=== PATIENT | female | born 1970 | race Caucasian/White ===

== ENCOUNTER 2022-02-12 15:49 | Emergency (ER) | payer OTHER, SELFPAY ==
--- NOTE | ~2022-02-12 | XR_ITS ---
XR elbow RT min 3V DATE: 02/12/2022 16:38 INDICATION: Pain after pushing heavy objects. TECHNIQUE: 4 views COMPARISON: None FINDINGS: No fracture or dislocation or joint effusion. No periosteal reaction or bone destruction. IMPRESSION: Negative Reviewed, dictated and finalized at location B. EY MECHANIC IMPRESSION: Negative
[2022-02-12 16:03] VITALS: BP 125/64; PULSE 70; RESP 16; TEMP 36.3; O2SAT 98
--- NOTE | 2022-02-12 18:16 | ED.GENADULT ---
HPI - General Adult General Chief complaint: Extremity Problem,Nontraumatic Stated complaint: R. arm pain Time Seen by Provider: 02/12/22 18:12 Source: RN notes reviewed History of Present Illness HPI narrative: Patient presents emergency room from home for right elbow pain. Patient states symptoms began approximately 5 days ago. 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 states that that evening she began to have pain in her right lateral elbow she denies any direct trauma or injury the pain is worse with extension of the wrist and opening of her hand as well as supination and pronation of her wrist she denies any numbness or tingling in the extremity states she took Tylenol earlier today for the Related Data Allergies Allergy/AdvReac Type Severity Reaction Status Date / Time No Known Allergies Allergy Unknown Unverified 10/09/16 16:32 Review of Systems Review of Systems: Gen.: Denies fevers or chills Musculoskeletal: See HPI Neuro: Denies numbness, tingling, weakness Skin: Denies rash Endo: Denies DM PMFSH Past Medical History Medical History (Updated 02/12/22 @ 18:22 by Tom Rios DO) Patient denies significant medical history Social History Social History (Updated 02/12/22 @ 18:17 by Tom Rios DO) Smoking status: Never smoker Exam Narrative: APPEARANCE: No acute distress, nontoxic, resting in bed Eyes: EOMI HEENT: Normocephalic, atraumatic, RESPIRATORY: No respiratory distress MUSCULOSKELETAl: Tender palpation over the right brachial radialis there is no tenderness of the olecranon process there is no tenderness with medial lateral elbow no tenderness of the wrist radial pulse 2+ neurovascular intact full flexion-extension of the elbow without pain pain with supination and pronation of the wrist as well as extension at the wrist neurovascular intact NEURO: Awake and alert. Following commands, speech normal, no focal deficits SKIN:: Warm, dry. Normal Color no rash or lesions Course Course Emergency Course: Discussed with patient results of workup and diagnosis. Discussed need for follow-up with primary care, proper use of medication, and reasons to return to the emergency department. Patient understands and agrees to current treatment plan Vital Signs Vital signs: Vital Signs Temperature 97.4 F L 02/12/22 16:03 Pulse Rate 70 02/12/22 16:03 Respiratory Rate 16 02/12/22 16:03 Blood Pressure 125/64 02/12/22 16:03 Pulse Oximetry 98 02/12/22 16:03 Oxygen Delivery Room Air 02/12/22 16:03 Temperature 97.4 F L 02/12/22 16:03 Pulse Rate 70 02/12/22 16:03 Respiratory Rate 16 02/12/22 16:03 Blood Pressure 125/64 02/12/22 16:03 Pulse Oximetry 98 02/12/22 16:03 Oxygen Delivery Room Air 02/12/22 16:03 Medical Decision Making MDM Narrative Medical decision making narrative: Patient?s injury is consistent with muscular skeletal etiology. No signs of neurologic or vascular compromise to exam. Compartments are soft without signs of compartment syndrome. Pain is consistent with exam and injury. Suspect right brachial radialis strain Vital Signs Vital Signs: Vital Signs Temperature 97.4 F L 02/12/22 16:03 Pulse Rate 70 02/12/22 16:03 Respiratory Rate 16 02/12/22 16:03 Blood Pressure 125/64 02/12/22 16:03 Pulse Oximetry 98 02/12/22 16:03 Oxygen Delivery Room Air 02/12/22 16:03 Temperature 97.4 F L 02/12/22 16:03 Pulse Rate 70 02/12/22 16:03 Respiratory Rate 16 02/12/22 16:03 Blood Pressure 125/64 02/12/22 16:03 Pulse Oximetry 98 02/12/22 16:03 Oxygen Delivery Room Air 02/12/22 16:03 Imaging Data Radiologist's impression: ITS Impressions Elbow X-Ray 02/12/22 16:42 IMPRESSION: Negative Discharge Plan Discharge Clinical Impression: Strain of elbow, right Patient Disposition: Home, Self-Care Condition: Stable Instructio
[2022-02-12] MEDS: IBUPROFEN 600 MG TABLET PO (18:32)
== END 2022-02-12 18:53 | disposition home or self-care (01) ==
PROVIDERS: Emergency Provider Emergency Medicine; PCP Internal Medicine Infectious Disease
DX: S56.911A Strain of unspecified muscles, fascia and tendons at forearm level, right arm, initial encounter (principal); X50.9XXA Other and unspecified overexertion or strenuous movements or postures, initial encounter
CPT/HCPCS: 73080; 99283; A9270

== ENCOUNTER 2022-06-30 06:14 | Emergency (ER) | payer OTHER, SELFPAY ==
--- NOTE | ~2022-06-30 | XR_ITS ---
EXAMINATION: XR chest 2V DATE: 06/30/2022 06:50 INDICATION: Chest pain TECHNIQUE: PA and lateral views of the chest were obtained. COMPARISON: None FINDINGS: The lungs are clear with no focal airspace opacities, pulmonary edema, pleural effusion or pneumothor ax. The cardiomediastinal silhouette is normal. Mild lower thoracic levocurvature with mild to modera te thoracic spondylosis. IMPRESSION: 1. No acute cardiopulmonary disease. Reviewed, dictated and finalized at location A.
[2022-06-30 06:18] VITALS: BP 128/63; PULSE 82; RESP 18; O2SAT 97
--- NOTE | 2022-06-30 06:20 | ECG_ITS ---
Measurements Intervals [place] Rate: 73 P: 39 CO: 166 QRS: -26 QRSD: 94 T: 40 QT: 412 QTc: 456 Interpretive Statements SINUS RHYTHM LOW QRS VOLTAGE IN PRECORDIAL LEADS [QRS DEFLECTION < 1.0 mV IN CHEST LEADS] MODERATE VOLTAGE CRITERIA FOR LVH, CONSIDER NORMAL VARIANT [MEETS CRITERIA IN ONE OF: R(aVL), S(V1), R(V5), R(V5/V6)+S(V1)] NO PREVIOUS ECG AVAILABLE FOR COMPARISON Electronically Signed On 06-30-2022 16:04:00 CDT by Thuan Sadler M.D.
[2022-06-30 06:44] LABS: Basophils Percent Auto 0.4 % (0.2-1.2); Eosinophils Absolute Auto 0.3 K/mm3 (0-0.3); Eosinophils Percent Auto 3.2 % (0-4.4); Hematocrit 36.7 % (37.0-47.0); Hemoglobin 11.6 g/dL (12.0-15.0); Immature Granulocyte Absolute 0.03 K/mm3 (0.00-0.031); Immature Granulocyte Percent A 0.4 % (0-0.5); Lymphocytes Absolute Auto 2.28 K/mm3 (0.9-3.2); Mean Corpuscular HGB Conc 31.6 g/dl (32-36); Mean Corpuscular Hemoglobin 28.9 pg (26-34); Mean Corpuscular Volume 91.5 fl (80-100); Mean Platelet Volume 9.5 fl (7.4-10.4); Monocytes Absolute Auto 0.6 K/mm3 (0.1-0.6); Monocytes Percent Auto 6.7 % (2.6-8.5); Neutrophils Percent Auto 61.3 % (45.5-73.1); Platelet Count Result 357 k/mm3 (150-375); Red Blood Count 4.01 M/mm3 (4.2-5.4); Red Cell Distribution Width 13.2 % (11.5-14.5); White Blood Count 8.2 K/mm3 (4.5-10.0)
[2022-06-30 06:56] LABS: Alanine Aminotransferase 20 U/L (6-35); Albumin Level 4.1 g/dL (3.5-5.1); Alkaline Phosphatase 111 U/L (38-126); Anion Gap 5 mmol/L (8-16); Aspartate Amino Transferase 20 U/L (14-36); Bilirubin,Total 0.5 mg/dL (0.2-1.3); Blood Urea Nitrogen 22 mg/dL (7-17); Calcium 8.7 mg/dL (8.4-10.2); Carbon Dioxide 31 mmol/L (22-30); Chloride 102 mmol/L (98-107); Estimated CRCL calculation 143 ml/min; Estimated Glomerular Filt Rate > 60; Glucose 166 mg/dL (65-110); Lipase 76 U/L (23-300); Potassium 3.8 mmol/L (3.4-5.0); Sodium 138 mmol/L (137-145)
[2022-06-30 07:07] LABS: INR 1.1
[2022-06-30 07:08] LABS: Partial Thromboplastin Time 31.5 SECONDS (22.3-36.8)
[2022-06-30 07:11] LABS: Troponin I < 0.012 ng/mL (0.000-0.034)
--- NOTE | 2022-06-30 08:56 | ED.CHESTPAIN ---
HPI - Chest Pain General Chief Complaint: Chest Pain Stated Complaint: left arm pain/chest pain Time Seen by Provider: 06/30/22 08:55 Source: patient Mode of arrival: ambulatory Limitations: no limitations History of Present Illness HPI narrative: Patient is a 52 y/o female who presents to the ED with c/o left upper extremity and chest pain. Patient reports she woke up for work around 3:30 AM this morning and noticed discomfort in her left upper extremity from her shoulder down to her fingers. She also reported having pain into her left axillary region, left upper chest. She states the pain was constant for the first couple hours, but has been intermittent since then. Pain is aggravated with movement of left upper extremity, no aggravation with exertion. Patient not tried anything for pain. Denies any pain currently upon my evaluation. She does report she has had episodes of pain like this in the past. She has previously received a normal cardiac stress testing in the past, several years ago. She does not currently follow with a blower feeder dyed raw stock. Patient did feel slightly nauseous with the pain, but denied any vomiting, abdominal pain, difficulty breathing, recent cough or cold symptoms, fevers, lower extremity pain or swelling, Hx of CAD. Patient reports a history of hypertension, prediabetes, hypercholesterolemia, but is not currently taking her statin medication. Denies family history of cardiac disease or smoking history. Denies Hx of blood clots. Related Data Allergies Allergy/AdvReac Type Severity Reaction Status Date / Time No Known Allergies Allergy Unknown Unverified 10/09/16 16:32 Review of Systems Review of Systems: CONSTITUTIONAL: Denies fever, chills, or sweats. ENT: Denies rhinorrhea, congestion, sore throat. CARDIOVASCULAR: See HPI. RESPIRATORY: Denies cough or dyspnea. GASTROINTESTINAL: See HPI. GENITOURINARY: Denies dysuria or hematuria. SKIN: Denies rash or itching. MUSCULOSKELETAL: See HPI. NEUROLOGIC: Denies headache, numbness, or weakness. All systems reviewed & are unremarkable except as noted in HPI and below PMFSH Past Medical History Medical History HLD (hyperlipidemia) HTN (hypertension) Prediabetes Surgical History Surgical History No pertinent past surgical history Social History Social History Smoking status: Never smoker Exam Narrative: GENERAL: Well appearing, morbidly obese, non-toxic, in no acute distress. HEAD: Normocephalic, atraumatic. NECK: Supple. No adenopathy, no masses. RESPIRATORY: Airway patent, respirations nonlabored. Clear to auscultation bilaterally, no rales, rhonchi, wheezing. CARDIOVASCULAR: Regular rate and rhythm without murmurs, rubs, or gallops. Radial pulses 2+ and equal bilaterally. ABDOMINAL: Soft, nontender, nondistended, no hepatosplenomegaly. Normoactive BS. MUSCULOSKELETAL: Moves all extremities. Strength/ROM intact without gross deformities. No edema. No calf tenderness. No significant chest wall tenderness palpation. Mild discomfort with flexion and abduction of left upper extremity. SKIN: Warm, dry, normal color. No rashes. NEURO: A&O X3. Speech clear. Cranial nerves II-XII grossly intact. Steady gait. No ataxic movements. PSYCHIATRIC: Appropriate mood and affect. Normal interaction. Course Vital Signs Vital signs: Vital Signs Pulse Rate 82 06/30/22 06:18 Respiratory Rate 18 06/30/22 06:18 Blood Pressure 128/63 06/30/22 06:18 Pulse Oximetry 97 06/30/22 06:18 Oxygen Delivery Room Air 06/30/22 06:18 Pulse Rate 60 06/30/22 10:43 Respiratory Rate 16 06/30/22 10:43 Blood Pressure 126/67 06/30/22 10:43 Pulse Oximetry 97 06/30/22 10:43 Oxygen Delivery Room Air 06/30/22 09:51 MDM - Chest Pain MDM Narrative Medical decision [email or web address]
[2022-06-30 09:45] LABS: Troponin I < 0.012 ng/mL (0.000-0.034)
[2022-06-30 10:43] VITALS: BP 126/67; PULSE 60; RESP 16; O2SAT 97
== END 2022-06-30 10:44 | disposition home or self-care (01) ==
PROVIDERS: Emergency Medicine; Emergency Provider Physician Assistant; PCP Internal Medicine Infectious Disease
DX: R07.89 Other chest pain (principal); M79.602 Pain in left arm; I10 Essential (primary) hypertension; E78.00 Pure hypercholesterolemia, unspecified; R73.03 Prediabetes
CPT/HCPCS: 36415; 71046; 80053; 83690; 84484; 85025; 85610; 85730; 93005; 99284

== ENCOUNTER 2024-11-21 15:43 | Emergency (ER) | payer OTHER, SELFPAY ==
--- OUTSIDE RECORDS SUMMARY | 2024-11-21 15:46 | XMS_ITS | Encounter Summary ---
Author Organization [facility] Healthcare Address [address] [place] [address] Care Team Providers Care Riverboat Master Name Role Phone Fadi Wakefield MD Primary Care Provider [phone] Christina Hernandez MD Unavailable Annia Garza MD Unavailable [phone] Jay Jones OD Unavailable [phone] Marlo Zamudio MD Unavailable [phone] CuffRichy OD Unavailable [phone] Encounter Details Date Type Department Care Team (Late st Contact Info) Description 10/21/2024 Results Follow-Up [facility] Medical Group [facility] [address] [place] [address] [phone] Fadi Wakefield MD [address] [facility] [address] [place] [address] Protime-INR, Basic metabolic panel, Hemoglobin A1c, eGFR Social History Tobacco Use Types Packs/Day Years Used Date Smoking Tobacco: Never Smokeless Tobacco: Never Alcohol Use Standard Drinks/Week Comments No 0 (1 standard drink = 0.6 oz pur e alcohol) very rare [facility] Utilities Answer Date Recorded In the past 12 months has [employer] electric, gas, oil, or water company threatened to shut off services in your home? No 07/13/2023 Social Connection and Isolation Panel Answer Date Recorded In a typical week, how many times do you talk on the phone with family, friends, or neighbors? More than three times a week 07/13/2023 How often do you get togethe r with friends or relatives? Three times a week 07/13/2023 How often do you attend chur ch or shinto services? Never 07/13/2023 Do you belong to any clubs o r organizations such as jainism groups, unions, fraternal or athletic groups, or school groups? No 07/13/2023 How often do you attend meet ings of the clubs or organizations you belong to? Never 07/13/2023 Are you , , di vorced, , never , or living with a partner? 07/13/2023 AUDIT-C Answer Date Recorded Q1: How often do you have a drink containing alc ohol? Monthly or less 10/07/2023 Q2: How many drinks containi ng alcohol do you have on a typical day when you are drinking? 1 or 2 10/07/2023 Q3: How often do you have si x or more drinks on one occasion? Never 10/07/2023 Overall Financial Resource Strain (CARDIA) Answe r Date Recorded How hard is it for you to pa y for the very basics like food, housing, medical care, and heating? Not hard at all 07/13/2023 PHQ-2 Answer Date Recorded PHQ-2 Total Score (If total score is 3 or more points, staff should administer the PHQ-9) 0 10/22/2023 [facility] - Occupational Stress Questionnaire Answer Date Recorded Do you feel stress - tense, restless, nervous, or anxious, or unable to sleep at night because your mind is troubled all the time - these days? Only a little 07/13/2023 Hunger Vital Sign Answer Date Recorded Within the past 12 months, y ou worried that your food would run out before you got the money to buy more. Never true 07/13/19 24 Within the past 12 months, t he food you bought just didn't last and you didn't have money to get more. Never true 07/13/2023 PRAPARE - Transportation Answer Date Re corded In the past 12 months, has l ack of transportation kept you from medical appointments or from getting medications? No 06/27 In the past 12 months, has l ack of transportation kept you from meetings, work, or from getting things needed for daily living? No 07/15/2023 Housing Stability Vital Sign Answer Christopher e Recorded In the last 12 months, was t here a time when you were not able to pay the mortgage or rent on time? No 07/13/2023 In the last 12 months, how many places have you lived? 1 07/13/2023 In the last 12 months, was t here a time when you did not have a steady place to sleep or slept in a [place] [facility] [place] (including now)? No 07/13/2023 PHQ-9 Answer Date Recorded Patient Health Questionnaire-9 Score 1 07/15/2023 Personal Safety Answer Date Recorded Have you ever been in or are you currently in a harmful physical or emotional relationship or is someone making you feel afraid or unsafe? Denies 03/19/2024 Education Answer Date Recorded What is the highest level of school you have completed or the highest degree you have received? 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 Not on file Not on file documented as of this encounter Plan of Treatment Not on file documented as of this encounter Visit Diagnoses Not on filedocumented in this encounter Care Teams Riverboat Master Relationship Specialty Start Date End Date Fadi Wakefield MD [address] [place] [address] PCP - General Infectious Diseases 03/06/19 Christina Hernandez MD [address] [place] [address] Consulting Physician Neurology 10/06/19 Annia Garza MD [address] [address] Aviation Ordnance Officer Obstetrics and Gynecology 09/27/19 Jay Jones OD [address] [place] [address] Consulting Physician Optometry 06/06/22 Marlo Zamudio MD [address] [place] [address] Consulting Physician Orthopedic Surgery 02/03/24 Richy Zarate, OD [address] [place] [address] Consulting Physician Optometry 05/12/24 documented as of this encounter
--- OUTSIDE RECORDS SUMMARY | 2024-11-21 15:46 | XMS_ITS | Encounter Summary ---
Author Organization [facility] Healthcare Address [address] [place] [address] Care Team Providers Care Keno Writer / Runner Name Role Phone Fadi Wakefield MD Primary Care Provider [phone] Christina Hernandez MD Unavailable Annia Garza MD Unavailable [phone] Jay Jones OD Unavailable [phone] Marlo Zamudio MD Unavailable [phone] Richy Zarate OD Unavailable [phone] Encounter Details Date Type Department Care Team (Late st Contact Info) Description 10/25/2024 Results Follow-Up [facility] Medical [facility] [address] [place] [address] [phone] Fannie Rosa, [employer] HEATER TENDER Protime-INR Social History Tobacco Use Types Packs/Day Years Used Date Smoking Tobacco: Never Smokeless Tobacco: Never Alcohol Use Standard Drinks/Week Comments No 0 (1 standard drink = 0.6 oz pur e alcohol) very rare [facility] Utilities Answer Date Recorded In the past 12 months has e electric, gas, oil, or water company threatened [...] often do you attend chur ch or taoist services? Never 07/13/2023 Do you belong to any clubs o r organizations such as yazidi groups, unions, fraternal or athletic groups, or [...] staff should administer the PHQ-9) 0 10/22/2023 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 on file Not on file documented as of this encounter Plan of Treatment Not on file documented as of this encounter Visit Diagnoses Not on filedocumented in this encounter Care Teams Keno Writer / Runner Relationship Specialty Start Date End Date Fadi Wakefield MD [address] [place] [address] PCP - General Infectious Diseases 03/06/19 Christina Hernandez MD [address] [place] [address] Consulting Physician Neurology 10/06/19 Annia Garza MD [address] [place] [address] Clinical Tech Obstetrics and Gynecology 09/27/19 Jay Jones OD [address] [place] [address] Consulting Physician Optometry 06/06/22 Marlo Zamudio MD [address] [place] [address] Consulting Physician Orthopedic Surgery 02/03/24 Richy Zarate OD [address] [place] [address] Consulting Physician Optometry 05/12/24 documented as of this encounter
--- OUTSIDE RECORDS SUMMARY | 2024-11-21 15:46 | XMS_ITS | Clinical Summary ---
Author Organization [facility] Address [address] [place] [address] Care Team Providers Care Inspector Publications Name Role Phone Marques Puri MD Primary Care Provider [phone] Christina Hernandez MD Unavailable Annia Garza MD Unavailable [phone] Jay Jones OD Unavailable Marlo Zamudio MD Unavailable [phone] Richy Zarate OD Unavailable [phone] Allergies No known active allergies Medications blood-glucose meter misc Use monitor to test glucose 1-2x daily E 11.9 1 each Active lancets misc Use to test glucose 1-2x daily 100 each 11 020 Active cholecalciferol (VITAMIN D-3) 25 mcg (1,000 unit) tablet Take 1 tablet (1,000 Units total) by mouth daily Active cyanocobalamin (Vitamin B-12) 1,000 mcg tablet Take 1 tablet (1,000 mcg total) by mouth daily Active aspirin 81 mg enteric coated tabletIndication s:prevention of thrombosis Take 1 tablet (81 mg total) by mouth daily Active atorvastatin (LIPITOR) 40 mg tabletIndication s:Hyperlipidemia associated with type 2 diabetes mellitus (HCC) Take 1 tablet (40 mg total) by mouth nightly 90 tablet 3 024 Active acetaminophen (TYLENOL) 500 mg tabletIndication s:Acute febrile illness Take 1-2 tablets (500-1,000 mg total) by mouth every 6 (six) hours as needed for pain or fever Collaborating physician Marlo Gamboa MD 30 tablet 024 Active meclizine (ANTIVERT) 25 mg tabletIndication s:Vertigo Take 1 tablet (25 mg total) by mouth 3 (three) times a day as needed for dizziness 30 tablet 024 Active inhalational spacing device (Aerochamber MV) spacerIndication s:COVID Use with albuterol inhaler 1 each 025 Active albuterol HFA (PROVENTIL HFA,VENTOLIN HFA,PROAIR HFA) 90 mcg/actuation inhalerIndicatio ns:COVID Inhale 2 puffs every 4 (four) hours as needed for shortness of breath or wheezing (cough) 18 g 025 Active warfarin (COUMADIN) 1 mg tabletIndication s:Lupus anticoagulant disorder TAKE 1 TABLET (1 MG TOTAL) BY MOUTH DIRECTED TAKE DIRECTED BASED ON YOUR PROTIME RESULTS 90 tablet 1 025 Active warfarin (COUMADIN) 4 mg tabletIndication s:Other (complete free text reason below),lupus antibody TAKE 1 TABLET (4 MG TOTAL) BY MOUTH DIRECTED TAKE DIRECTED BASED ON YOUR PROTIME RESULTS 90 tablet 1 025 Active lisinopriL (PRINIVIL,ZESTRI L) 20 mg tabletIndication s:Hyperlipidemia associated with type 2 diabetes mellitus (HCC) TAKE 1 TABLET BY MOUTH EVERY DAY 90 tablet 025 Active tirzepatide (Mounjaro) 5 mg/0.5 mL pen injector injectionIndicat ions:type 2 diabetes mellitus INJECT 0.5 ML (5 MG TOTAL) UNDER THE SKIN EVERY 7 DAYS 2 mL 3 025 Active diclofenac sodium (VOLTAREN) 1 % gelIndications:L eft leg pain Apply 2 g topically 4 (four) times a day as needed (pain) 025 Active tirzepatide (Mounjaro) 5 mg/0.5 mL pen injector injectionIndicat ions:type 2 diabetes mellitus INJECT 0.5 ML (5 MG TOTAL) UNDER THE SKIN EVERY 7 DAYS 2 mL 3 025 2024 Discontinued lisinopriL (PRINIVIL,ZESTRI L) 20 mg tabletIndication s:Hyperlipidemia associated with type 2 diabetes mellitus (HCC) TAKE 1 TABLET BY MOUTH EVERY DAY 90 tablet 025 2024 Discontinued tiZANidine (ZANAFLEX) 4 mg tabletIndication s:Left leg pain Take 1 tablet (4 mg total) by mouth every 8 (eight) hours as needed (Take as directed to relax muscles) 20 tablet 025 2024 Discontinued(T herapy completed) diclofenac sodium (VOLTAREN) 1 % gelIndications:L eft leg pain Apply 2 g topically 4 (four) times a day 100 g 025 2024 Discontinued doxycycline (VIBRAMYCIN) 100 mg capsule Take 1 tablet/capsule (100 mg total) by mouth 2 (two) times a day for 10 days 20 tablet/cap gurdeep 025 2024 Active Problems Problem Noted Date Diagnosed Date Verruca vulgaris 08/27/2024 Overview (11/17/2024): Left thumb near base of nail, ulnar aspect. Acute pain of right shoulder 08/27/2024 Headache syndrome 08/01/2024 COVID 05/23/2024 Acute midline low back pain with left-sided scia stephen 03/19/2024 Pneumonia due to infectious organism 01/13/2024 Assessment & Plan (01/31/2024 2:29 PM 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): Acute problem diagnosed in the ER about three weeks ago. She has recovered completely. We ordered a follow-up chest x-ray to make sure the infiltrate is cleared. 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 Assessment & Plan (01/31/2024 2:25 PM 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): New problem diagnosed several months ago, surgery is planned to alleviate symptoms, see discussion elsewhere. Carpal tunnel syndrome of left wrist 10/22/2023 Overview (01/30/2024): Severe on NCS/EMG, also entrapment of ulnar nerve. >>OVERVIEW FOR NUMBNESS OF LEFT HAND WRITTEN ON 10/22/2023 1:50 PM BY MARQUES PURI MD Median nerve distribution, left hand, started mid-August 2023. Assessment & Plan (05/12/2024 4:04 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): Acute problem as of about 6-7 months ago, status post carpal tunnel and cubital tunnel release with some improvement. Keep follow-up with surgery and physical therapy. Assessment & Plan (01/31/2024 2:26 PM 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): New problem diagnosed several months ago, she has severe left carpal tunnel syndrome, also entrapment of the ulnar nerve at the elbow. Surgery is planned but not scheduled yet. There is no medical contraindication to having this surgery. She will have to discontinue aspirin and warfarin prior to the surgery according to the surgeon's practice and recommendation. She takes these medications to reduce the risk of thromboembolic complications from lupus anticoagulant syndrome and history of stroke. She will need to resume them as soon as safe to do so after her surgery. Assessment & Plan (01/30/2024 5:42 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): >>ASSESSMENT AND PLAN FOR NUMBNESS OF LEFT HAND WRITTEN ON 10/22/2023 2:08 PM BY MARQUES PURI MD New symptom, uncontrolled. She noticed numbness in a median nerve distribution of the left hand starting around mid August. There is no significant neck pain. She does do repetitive work at the [employer]. Exam shows no weakness or atrophy. Tinel and Phalen signs are negative. We ordered EMG and nerve conduction study. She may need to be off of her anticoagulants for few days for the EMG depending on their recommendations. Lupus anticoagulant disorder 09/14/2023 Assessment & Plan (11/16/2024 6:56 PM CDT): See [facility] HPI/AP. Assessment & Plan (05/12/2024 4:05 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): Chronic, diagnosed 8 months ago and expected to last more than a year, associated with stroke syndrome,. Managed with warfarin anticoagulation. Assessment & Plan (01/31/2024 2:28 PM 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): New diagnosis as of several months ago when she presented with a stroke. She is on warfarin and aspirin. These medications will need to be held for the carpal tunnel surgery. We will look into bridging therapy with enoxaparin, but it is probably not needed. Assessment & Plan (10/22/2023 2:11 PM CDT): Chronic but newly diagnosed, and associated with acute stroke. She is on warfarin and aspirin. She denies any bleeding complications in the urine or stool, but says she does bruise easily although this is not a new symptom. We will monitor clinically. History of ischemic stroke 07/08/2023 Overview (10/22/2023): Left cheung radiata with right-sided weakness. >>OVERVIEW FOR ACUTE CVA (CEREBROVASCULAR ACCIDENT) (HCC) WRITTEN ON 07/23/2023 6:09 AM BY MARQUES PURI MD MRI without contrast: Acute cerebrovascular infarction in the left cheung radiata adjacent to the left lateral ventricle. >>OVERVIEW FOR RIGHT SIDED WEAKNESS WRITTEN ON 10/22/2023 4:38 AM BY MARQUES PURI MD Due to cheung radiata stroke, see hospital records. Assessment & Plan (10/22/2023 2:06 PM CDT): Acute as of about three months ago, symptoms essentially resolved with no significant residual. Her symptoms were right-sided. She does complain of left finger numbness which sounds more like a carpal tunnel syndrome problem, see discussion elsewhere. She continues on aspirin and warfarin for the stroke and positive lupus anticoagulant. Return here in six months. Assessment & Plan (07/25/2023 6:42 AM CDT): She was admitted to [facility] on 07/08/2023 and discharged on 07/12/2023. She then went to acute rehab at [facility] until 07/16/2023. Since being home, she has done well. She has mild vague headaches. The transient weakness in her right arm has essentially resolved. There is still a mild speech difficulty, but nothing noticeable on exam today. Neurological exam is normal. She will continue full-dose aspirin daily. She was supposed to stop her lisinopril after hospital discharge, but resumed taking it at home. Her blood pressure today is borderline elevated so she can continue lisinopril 20 mg daily and we will see her back in three months. Low serum vitamin B12 01/09/2022 Overview (01/09/2022): B12 <400, possible side-effect of metformin. Stress at work 12/27/2021 Assessment & Plan (02/02/2023 8:00 PM 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): She works at a [employer] for [employer], currently [employer] and very soon [employer]. Unfortunately, her work environment is stressful. There is Nepotism. She also feels blue this month which is the anniversary of several family members deaths including parents and two brothers. Madera's disease runs in the family and she worries that she might develop symptoms. She has one surviving brother out of six siblings, at least three of whom had definite or probable Madera's. We discussed options for managing her stress and mood problems. Her employer might have an EAP that she can access. Counseling is probably also available through her insurance. Medications would be an option if symptoms persist. We also offered a referral to a senior investment manager for counseling regarding the Madera's. We made no definite decisions on referrals at this time. Sensorineural hearing loss (SNHL) of both ears 0 07/22/2021 Assessment & Plan (07/22/2021 8:44 AM CDT): Hearing and Balance Testing Avoid meclizine or other similar medications for 48 hours prior to testing [facility] 64 ounces of caffeine free and soda free fluid daily Avoid extra salt Nocturnal leg cramps 12/28/2019 Overview (02/17/2021): Mostly nocturnal. Assessment & Plan (07/17/2022 4:33 PM CDT): She takes gabapentin as needed, continue same. Assessment & Plan (01/02/2022 10:57 AM CDT): She takes gabapentin at nighttime as needed. It seems to work for her so we will continue current therapy. Assessment & Plan (2021 1:46 PM 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): She saw MANISH Douglas about month ago. She has been having muscle cramps, mostly at night, mostly in her calves and ankles. Atorvastatin was stopped with minimal if any benefit. CPK was normal. Other labs were unremarkable including magnesium and calcium. Vascular exam is normal. The symptoms sound like nocturnal leg cramps. She might have restless leg (has obstructive sleep apnea and uses a CPAP most nights). We will try some gabapentin, risks of medication discussed. Follow-up as scheduled in March. Assessment & Plan (01/24/2021 2:35 PM CDT): Pt reports muscle cramping all over her body for a few weeks now. She admits that she does not drink a lot of fluids in general. She admits to getting about 6 hours of sleep at night, but she does sleep with her CPAP machine. 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 She is taking Lipitor 80mg which we discussed today that is a possible factor. Considering that her problems could be relating to a few things--dehydration, inadequate sleep habits, working in extremely cold conditions, and being on a statin--we discussed that we should do labs before making any decisions on potentially changing or switching medications. She verbalized agreement. I do advise stretches daily--which we talked about today. Labs: CBC, CMP, magnesium, B12, vit d, TSH, ESR, CRP We can discuss f/u after we receive these labs back. STACIE (obstructive sleep apnea) 07/15/2017 Overview (10/16/2023): See scanned sleep studies from [facility]. Has a CPAP mask, has not been using it because she isn't sure the insurance will pay for the lease. Follow up home sleep study interpreted 10/31/2019: Moderate obstructive sleep apnea syndrome. This is severe in the supine position. Sees Dr. Hernandez. CPAP titration 10/12/2023: 1. Mild reduction sleep efficiency 2. Continuous positive therapy of 13 cm found to be the best attempted pressure 3. A small/medium Ronda fullface mask was used Assessment & Plan (11/16/2024 6:56 PM CDT): See [facility] HPI/AP. Assessment & Plan (01/15/2023 4:00 PM CDT): Continue CPAP. Assessment & Plan (08/08/2022 11:32 AM CDT): She needs a new strap for her mask. She has not seen Dr. Hernandez recently and I encouraged a visit to his office to review therapeutic efficacy. Assessment & Plan (01/02/2022 10:58 AM CDT): She is on CPAP. She missed her follow-up with Dr. Hernandez, but plans to reschedule it. Assessment & Plan (08/08/2021 2:59 PM CDT): She will keep her follow ups with Dr. Hernandez. Assessment & Plan (04/25/2021 5:02 PM 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): She will keep her follow ups with Dr. Hernandez. Assessment & Plan (10/18/2020 3:25 PM CDT): She saw Dr. Hernandez and is back on CPAP, tolerating well. Continue same. Assessment & Plan (04/19/2020 1:19 PM 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): She is using her CPAP. She follows up with Dr. Hernandez. Assessment & Plan (10/06/2019 1:31 PM CDT): She just saw Dr. Hernandez this morning for her history of sleep apnea. Hopefully she will get started on treatment soon. Assessment & Plan (04/07/2019 11:22 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): She has decided she would like a referral to resume CPAP. We will get that set up with Dr. Hernandez. Assessment & Plan (03/14/2019 9:07 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): She apparently was diagnosed with sleep apnea a couple of years ago or less. She has a CPAP, but has not been using it lately. It is leased, and she is not sure that her current insurance will pay for it. We will try to this straightened out. Iron deficiency 07/03/2017 Overview (04/04/2020): nml folate and high b12 Hypertension associated with type 2 diabetes angie litus 05/22/2017 Assessment & Plan (11/16/2024 6:56 PM CDT): See [facility] HPI/AP. Assessment & Plan (05/12/2024 4:05 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): Chronic, present for 6-7 years, uncontrolled with recent systolic blood pressures mildly to moderately elevated on lisinopril 20 mg daily. However, BP in the office today is acceptable. Continue same. Assessment & Plan (01/31/2024 2:27 PM 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): Chronic, present for five or more years, currently taking lisinopril 20 mg daily. Blood pressure today is in good range. We will check labs before her follow-up in March. Assessment & Plan (10/22/2023 2:09 PM CDT): Chronic, controlled on lisinopril 20 mg daily. Continue same and check labs in six months. Assessment & Plan (07/25/2023 6:45 AM CDT): Blood pressure is borderline elevated on her current dose of lisinopril 20 mg daily. Before her recent hospitalization, blood pressure was controlled. Continue same for now. We will check with her about home blood pressures in a few days and adjust medication doses as needed. Follow-up in three months. Assessment & Plan (01/15/2023 3:59 PM CDT): Blood pressure is in a good range on lisinopril 20 mg daily. Continue same and check labs before her next visit in six months. Assessment & Plan (07/17/2022 4:31 PM CDT): Blood pressure is in a good range on current therapy. Labs are stable. Continue same, and follow-up in six months. Lab Results Component Value Date GLUCOSE 122 06/26/2022 CALCIUM 9.5 06/26/2022 SODIUM 139 06/26/2022 POTASSIUM 4.4 06/26/2022 CO2 29 06/26/2022 CHLORIDE 102 06/26/2022 BUNSER 14 06/26/2022 CREATININE 0.54 (L) 06/26/2022 Assessment & Plan (01/02/2022 10:57 AM CDT): Blood pressure is in a good range on current therapy. Continue same, and follow- up in six months. Assessment & Plan (08/08/2021 2:58 PM CDT): Blood pressure is well controlled on current therapy. Continue same. Follow-up in December as currently scheduled. Assessment & Plan (04/25/2021 5:04 PM 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): Blood pressure is in a good range on current medication. She denies having chest pain or pressure. Continue same. Assessment & Plan (10/18/2020 3:26 PM CDT): Blood pressure is in a good range on current therapy. Continue same. Assessment & Plan (04/19/2020 1:20 PM 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): Blood pressure is in a good range on lisinopril 20 mg. Continue same. Lab Results Component Value Date GLUCOSE 116 04/05/2020 CALCIUM 9.2 04/05/2020 SODIUM 141 04/05/2020 POTASSIUM 4.4 04/05/2020 CO2 29 04/05/2020 CHLORIDE 103 04/05/2020 BUNSER 20 04/05/2020 CREATININE 0.51 (L) 04/05/2020 Assessment & Plan (10/14/2019 3:12 PM CDT): Blood pressure is in a good range on current therapy. Continue same and follow- up in six months. Assessment & Plan (04/07/2019 11:20 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): Blood pressure is in a good range. Labs are stable. She is tolerating her medications. Continue same and follow-up in six months. Assessment & Plan (03/06/2019 3:05 PM 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): Blood pressure is in a good range. Continue current therapy. Check labs and follow up in one month. Assessment & Plan (05/22/2017 4:11 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): Patient had an episode of elevated blood pressure which she states she was on the phone at the time. Will continue lisinopril. Will continue to monitor. History of anemia 05/21/2017 Vertigo 03/29/2017 Overview (04/25/2021): Intermittent symptoms, spinning, lasts 15-30 minutes. Has had two bouts between 2017 and 2021. Responds to meclizine. No tinnitus or hearing loss. Assessment & Plan (08/19/2021 9:06 AM CDT): She continues to have intermittent bouts of vertigo. She saw Dr. Graham. Audiogram was ordered and a follow-up is planned. She takes meclizine as needed. Assessment & Plan (07/22/2021 8:43 AM CDT): Hearing and Balance Testing Avoid meclizine or other similar medications for 48 hours prior to testing 64 ounces of caffeine free and soda free fluid daily Avoid extra salt Assessment & Plan (05/30/2021 5:07 PM 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): Patient has had issues with vertigo since 2017. She reports since her visit in March episodes are occurring more frequently and has occasional headache, although she states headaches are not new for her. She reports she feels off balance and as though the room is spinning. Meclizine does help. On exam no acute findings and negative halley hallpike maneuvers. Have recommended given recurrent episodes that we refer to ENT for further evaluation as well as for vestibular therapy. Patient agreeable and will follow up in 4 weeks or sooner if needed. Assessment & Plan (04/25/2021 5:00 PM 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): She had a recurrence of vertigo about a week ago. It first occurred about 4 years ago and lasted intermittently for about a week, and responded to meclizine. The current episode lasted about 30' before subsiding. She denies tinnitus or hearing loss. Ear exam is normal. We sent in a refill of meclizine for use as needed. Vitamin D deficiency 03/08/2017 Overview (04/07/2019): Details lacking. Assessment & Plan (04/25/2021 4:57 PM 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): She stopped taking her vitamin D supplement. She basically lost track of it. Last vitamin D level was 30, just barely in the normal range. I recommended that she resume taking it. Assessment & Plan (10/06/2019 1:31 PM CDT): She has been on high-dose replacement and wanted a refill, but we will check a vitamin-D level first to see if she can transition to [id number] daily maintenance. 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 Assessment & Plan (11/16/2024 6:56 PM CDT): See [facility] HPI/AP. Assessment & Plan (05/08/2024 5:55 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): Chronic, present for 7-8 years, managed with semaglutide 7 mg daily. Assessment & Plan (01/31/2024 2:30 PM 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): Chronic, present for more than five years, currently treated with semaglutide 7 mg tablet daily. She does not check blood sugars at home. We ordered labs to be done before her follow-up in March. Assessment & Plan (10/22/2023 2:12 PM CDT): Chronic, controlled with diet. She also plans to resume Rybelsus. We ordered follow-up labs to be done before next visit in six months. She is overdue for her eye exam and I asked her to get this done soon. Lab Results Component Value Date HGBA1C 6.4 (H) 09/17/2023 HGBA1C 6.0 (H) 07/09/2023 HGBA1C 6.3 (H) 01/08/2023 Lab Results Component Value Date MICROALBUR 0.3 03/10/2019 LDLCALC 72 09/17/2023 CREATININE 0.56 (L) 10/07/2023 Relevant medication: Rybelsus 7 mg daily Assessment & Plan (07/23/2023 2:30 PM CDT): She is controlling diabetes with diet. Unfortunately there was a recent complication in the form of a stroke, but she did recover almost complete function. We will see her back in three months with labs. Lab Results Component Value Date HGBA1C 6.0 (H) 07/09/2023 Assessment & Plan (01/15/2023 4:09 PM CDT): She does not check blood sugars at home. She takes metformin 500 mg daily and Rybelsus 7 mg daily. HbA1c is in a good range. Lab Results Component Value Date HGBA1C 6.3 (H) 01/08/2023 Assessment & Plan (07/17/2022 4:34 PM CDT): Her glucometer no longer functions. We encouraged her to get a new one and monitor blood sugars occasionally at home. Diabetes does appear to be under pretty good control. Lab Results Component Value Date HGBA1C 6.5 (H) 06/26/2022 HGBA1C 6.6 (H) 01/02/2022 HGBA1C 6.8 (H) 04/17/2021 Lab Results Component Value Date MICROALBUR 0.3 03/10/2019 LDLCALC 134 (H) 06/26/2022 CREATININE 0.54 (L) 06/26/2022 Assessment & Plan (01/02/2022 10:59 AM CDT): She lost track of her glucometer so has not been checking blood sugars at home. Last HbA1c was in a good range and she is overdue for labs, so she will have that drawn again today. We will see her back in six months with fasting labs. Lab Results Component Value Date HGBA1C 6.8 (H) 04/17/2021 HGBA1C 6.7 (H) 10/11/2020 HGBA1C 6.5 (H) 04/05/2020 Lab Results Component Value Date MICROALBUR 0.3 03/10/2019 LDLCALC 116 04/17/2021 CREATININE 0.62 12/26/2021 Assessment & Plan (08/08/2021 3:00 PM CDT): She does not check blood sugars at home, but HbA1c is in a good range. She is on minimal therapy with metformin 500 mg daily. Continue same. Lab Results Component Value Date HGBA1C 6.8 (H) 04/17/2021 Assessment & Plan (04/25/2021 5:01 PM 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): She lost her glucometer. HbA1C is in a good range on low dose metformin. Continue same. Follow up in 6 months Assessment & Plan (02/17/2021 11:22 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): She has some numbness on the bottom of her feet which might be early diabetic neuropathy. Gabapentin may be helpful. We will give it a therapeutic trial and see her back in March as scheduled. Assessment & Plan (10/27/2020 1:49 PM CDT): Scanned office note, Richy Zarate, OD. No diabetic retinopathy on comprehensive exam. Assessment & Plan (10/29/2020 11:07 AM CDT): Her battery went bad on the glucometer so she is not sure what blood sugars are running. HbA1c is in a good range. She has only been taking one metformin a day instead of two a day. We recommended she take the listed dose of 500 mg twice a day. Nevertheless diabetes seems to be pretty well controlled. She needs to work on her diet and lose some weight. We will see her back in six months. Lab Results Component Value Date HGBA1C 6.7 (H) 10/11/2020 Assessment & Plan (04/19/2020 1:20 PM 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): Hemoglobin A1c is in a reasonable range, a little higher than before but acceptable. She is on a low-dose of metformin. Continue same and try to lose a little weight. She needs to get her eye exam done and forward a copy to our office. Lab Results Component Value Date HGBA1C 6.5 (H) 04/05/2020 Assessment & Plan (10/14/2019 3:15 PM CDT): She is tolerating metformin. Blood sugars are in a reasonable range as reflected in HgbA1C. She will continue to work on her diet as well. Lab Results Component Value Date HGBA1C 5.9 (H) 09/22/2019 Assessment & Plan (04/07/2019 11:22 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): She seems to be doing well with diabetes control. Continue same and follow-up in six months. Lab Results Component Value Date HGBA1C 6.1 (H) 03/10/2019 Assessment & Plan (03/06/2019 3:08 PM 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): She says she has p rediabetes, but most likely has diabetes. She was started on metformin by her former doctor. She has not had any labs done recently. We will get these ordered and see her back in one month. We will get a copy of her last eye exam as well. Hyperlipidemia associated with type 2 diabetes schuyler cantrell 03/08/2017 Assessment & Plan (11/16/2024 6:56 PM CDT): See [facility] HPI/AP. Assessment & Plan (05/12/2024 4:05 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): Chronic, present for 7-8 years, controlled with the atorvastatin 40 mg daily. Assessment & Plan (01/31/2024 2:26 PM 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): Chronic, treated with atorvastatin 40 mg nightly, continue same. She will get labs done before her follow-up appointment in March. Assessment & Plan (10/22/2023 2:09 PM CDT): Chronic, currently on generic Lipitor 40 mg daily after her stroke. We ordered lipids to be done in about six months to evaluate efficacy. Assessment & Plan (07/23/2023 2:28 PM CDT): She is tolerating generic Lipitor 40 mg daily. Continue same and follow-up with labs in three months. Assessment & Plan (01/15/2023 3:58 PM CDT): She takes generic Lipitor, tolerating well. Continue same, and check fasting labs before her next visit in six months. Assessment & Plan (07/17/2022 4:31 PM CDT): She takes generic Lipitor, tolerating well. Lipids have gone up for some reason. She is not to careful about her diet which is the likely explanation. We encouraged her to avoid saturated fats. Lab Results Component Value Date CHOL 205 (H) 06/26/2022 CHOL 187 04/17/2021 CHOL 173 04/05/2020 Lab Results Component Value Date HDL 51 06/26/2022 HDL 49 04/17/2021 HDL 52 04/05/2020 Lab Results Component Value Date LDLCALC 134 (H) 06/26/2022 LDLCALC 116 04/17/2021 LDLCALC 104 04/05/2020 LDL 112 (H) 03/10/2019 Lab Results Component Value Date TRIG 101 06/26/2022 TRIG 112 04/17/2021 TRIG 84 04/05/2020 Lab Results Component Value Date ALT 15 06/26/2022 AST 18 06/26/2022 ALKPHOS 113 06/26/2022 BILITOT 0.4 06/26/2022 Assessment & Plan (01/02/2022 10:56 AM CDT): She is on high-dose generic Lipitor. She seems to be tolerating it well. We will check fasting labs before her next visit in six months. Assessment & Plan (08/08/2021 2:57 PM CDT): She is on intermediate-dose generic Lipitor, seems to be tolerating it well. We will check lipids periodically. Lab Results Component Value Date CHOL 187 04/17/2021 CHOL 173 04/05/2020 CHOL 185 03/10/2019 Lab Results Component Value Date HDL 49 04/17/2021 HDL 52 04/05/2020 HDL 50 (L) 03/10/2019 Lab Results Component Value Date LDLCALC 116 04/17/2021 LDLCALC 104 04/05/2020 LDLCALC 99 05/22/2017 LDL 112 (H) 03/10/2019 Lab Results Component Value Date TRIG 112 04/17/2021 TRIG 84 04/05/2020 TRIG 124 03/10/2019 Assessment & Plan (04/25/2021 5:06 PM 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): We stopped her generic Lipitor because of some nonspecific joint symptoms, but this did not result in resolution of the discomfort. She still has the medication at home. We will have her resume the medication at a lower dose (40 mg daily instead of 80 mg daily). Assessment & Plan (10/18/2020 3:26 PM CDT): She is tolerating generic Lipitor. Continue same and check follow-up labs in six months. Assessment & Plan (04/19/2020 1:21 PM 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): She is on high-dose generic Lipitor, tolerating well. Continue same. Lipids are in a pretty good range. Lab Results Component Value Date CHOL 173 04/05/2020 CHOL 185 03/10/2019 CHOL 179 05/22/2017 Lab Results Component Value Date HDL 52 04/05/2020 HDL 50 (L) 03/10/2019 HDL 41 05/22/2017 Lab Results Component Value Date LDLCALC 104 04/05/2020 LDLCALC 99 05/22/2017 LDL 112 (H) 03/10/2019 Lab Results Component Value Date TRIG 84 04/05/2020 TRIG 124 03/10/2019 TRIG 197.0 (H) 05/22/2017 Lab Results Component Value Date ALT 17 04/05/2020 AST 24 04/05/2020 ALKPHOS 116 04/05/2020 BILITOT 0.4 04/05/2020 Assessment & Plan (10/14/2019 3:12 PM CDT): She is on high-dose generic Lipitor, tolerating well. Continue same. Check labs again before next visit in six months. Assessment & Plan (04/07/2019 11:19 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): She is on generic Lipitor, tolerating well. Lipid panel shows fairly good control. Continue current therapy and follow up in six months. Assessment & Plan (03/06/2019 3:05 PM 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): She is on generic Lipitor, seems to be tolerating it well. She has not had labs for a little over one year, so we will order a follow-up and see her back in one month. Knee pain, left 03/05/2017 Overview (04/07/2019): MRI 05/16/17, [facility]: 1. Evidence of undersurface medial meniscal tear. 2. Osteoarthritis most pronounced medially. 3. Joint effusion Assessment & Plan (10/27/2024 9:54 AM CDT): Assessment & Plan (10/20/2024 9:22 AM CDT): Based on the patient's limited pain and improvement with no real signs of infection at this point I do suspect that this is most likely a contaminant. I did start her on doxycycline and I explained to her that I would like her to finish this out completely. I would still like to see her in one week to recheck again. I had a very long conversation with her that if there is any return of pain at any point, and if there is any increase in heat or swelling of the knee even without pain, or if there is any development of fevers chills or night sweats that she should immediately go to the ER as this should need to be treated as a septic joint. At this point I suspect it is it contaminant and not a septic joint. However it again I will follow up with her in one week to see how this is doing. She exhibited understanding and is in agreement with this plan of care. Assessment & Plan (10/11/2024 3:51 PM CDT): Orders: lidocaine (XYLOCAINE) 20 mg/mL (2 %) injection 100 mg methylPREDNISolone acetate (DEPO-medrol) injection 80 mg Assessment & Plan (09/25/2024 10:28 AM CDT): Orders: XR Knee Left 4 or More Views Assessment & Plan (07/17/2022 4:32 PM CDT): She struggles with left knee pain. 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 Diclofenac is not really helping. She takes Tylenol occasionally. We discussed options for treatment including a trial of tramadol, weight loss, and referral to orthopedics. She prefers to try the tramadol first, risks of medication discussed. Assessment & Plan (10/14/2019 3:14 PM CDT): She continues to have left knee issues. MRI about 5 months ago showed a medial meniscal tear and osteoarthritis. We will arrange for orthopedic evaluation. Assessment & Plan (03/06/2019 2:36 PM 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): Torn meniscus, takes diclofenac which helps. Assessment & Plan (05/22/2017 4:17 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): The patient has a torn meniscus in her left knee. She has been taking diclofenac. Chronic pain 05/18/2016 Overview (03/06/2019): Hips have spurs. Takes diclofenac. Assessment & Plan (05/08/2024 5:59 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): Chronic, present for 7-8 years or longer, uncontrolled, recently in ER for low back pain, prescribed tramadol. Imaging showed moderate to severe degenerative changes with mild, grade 1 anterolisthesis L4 over L5 and moderate lumbar scoliosis. Assessment & Plan (10/22/2023 2:07 PM CDT): Chronic, currently without significant complaint. She does have some numbness in her left hand, first three fingers, see discussion elsewhere. Assessment & Plan (04/25/2021 5:17 PM 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): She continues on diclofenac and seems to be tolerating it well. She also take gabapentin for nocturnal leg cramps, but is not sure it really helps. We discussed stayng active and losing weight. Dental disease 05/18/2016 Overview (03/06/2019): Life-long tooth problems. 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 Has had some teeth pulled due to abscesses. Has partial dentures when she decides to wear them. They don't fit well. Morbid obesity with BMI of 40.0-44.9, adult [birth year]1990 Overview (11/16/2024): Started gaining with her pregnancies (x3, 91-96) and continued to gain afterwards. BMI fluctuates. Assessment & Plan (11/16/2024 6:56 PM CDT): See [facility] HPI/AP. Assessment & Plan (05/08/2024 5:54 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): Chronic, present for many years, uncontrolled, no significant improvement on semaglutide 7 mg tablets daily. Lifestyle changes recommended. Assessment & Plan (10/22/2023 2:12 PM CDT): Chronic, uncontrolled. At the hospital they told her to stop Rybelsus and she has put on some weight. Some of the weight could be fluid retention in her legs. She wants to go back on Rybelsus, and I do not see any contraindication. She has a supply of the 7 mg pills at home. If it does not work to get her weight down, we may consider alternative therapy. Assessment & Plan (07/23/2023 2:29 PM CDT): We encouraged attention to her diet, and hopefully some weight loss. Assessment & Plan (01/15/2023 4:00 PM CDT): She lost 20 lb over the past six months. The Rybelsus seems to be helping. Continue same. Assessment & Plan (08/08/2022 11:32 AM CDT): She has not been able to lose weight. We encouraged attention to her diet. We discussed medical aids to weight loss and sent in a prescription for Rybelsus which may also improve her glycemia control. Assessment & Plan (01/02/2022 10:57 AM CDT): We encouraged attention to her diet and consistent weight loss. She is down a few lb from her last visit. Assessment & Plan (08/08/2021 2:58 PM CDT): Her weight fluctuates. We encouraged consisted attention to her diet and weight loss. This would help the pain in her knees and reduce other risks of obesity. Assessment & Plan (05/04/2021 3:35 PM 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): Her weight is up a few lbs. She is in peak season at work and is working 10 hour shifts 5 days a week instead of 4 days a week. I encouraged attention to her diet and significant weight loss. Assessment & Plan (10/18/2020 3:26 PM CDT): Her weight is stable. I encouraged attention to her diet and significant weight loss. Assessment & Plan (10/06/2019 1:30 PM CDT): Weight is about the same. I encouraged attention to her diet and attempted weight loss, especially because her hips and left knee hurt. Assessment & Plan (04/07/2019 11:20 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): We discussed her weight, calorie targets, types of food to eat. Follow-up in six months. Assessment & Plan (03/06/2019 3:06 PM 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): She started to gain weight almost 30 years ago after her first . Her weight has been on a steady increase since then. Now she has probable diabetes. She has degenerative changes in her hips. We will work with her on this over time. Return in one month. Resolved Problems Problem Noted Date Diagnosed Date Resolved Date Localized swelling of left lower leg 08/01/2024 09/01/2024 Acute febrile illness 01/13/20242023 Overview (01/30/2024): Due to right perihilar pneumonia. Seen and treated in ER. Leg swelling 10/10/2023 09/01/2024 Overview (10/22/2023): Both legs, noticed it driving too [place] for vacation Assessment & Plan (10/22/2023 2:10 PM CDT): New symptom, uncertain significance. She noticed bilateral leg swelling after a trip to [place] two weeks ago. They went to the beach. They drove there and back. Exam shows some mild bilateral pitting edema which is symmetrical. She should be at low risk for venous thrombosis, but we did order Dopplers just to be sure. In the meantime, continue warfarin and aspirin which she takes for history of stroke. Lab Results Component Value Date INR 2.32 (H) 10/15/2023 INR 1.63 (H) 10/04/2023 INR 5.46 (Critical) 10/01/2023 Right foot pain 09/03/2021 08/01/2024 Chest pain 01/29/2021 08/01/2024 Assessment & Plan (01/02/2022 10:56 AM CDT): She still has brief episodes of chest pain now and then, nothing recent. Stress test was suboptimal in terms of rate, and there was a hypertensive response, but there was no ischemia. She never followed up with Cardiology. We again stressed that if she has persistent and more severe chest pain she should get it checked out in the emergency room immediately. Assessment & Plan (08/19/2021 9:05 AM CDT): She continues to experience intermittent chest pains. She has taken a few doses of sublingual nitroglycerin which seem to help. She had a suboptimal stress test that was below the target heart rate, but did not show any ischemic changes. She also previously saw Dr. Dorantes a few years ago after an ER visit for accelerated hypertension. He did a stress test in the office which she says was normal. It was a s itting stress test. More recently she has had trouble with vertigo and possibly some lightheadedness. Echocardiogram was normal. Thirty day event monitor was ordered but has not been reported yet. She continues on a beta-bertha and a medicine for cholesterol. She is not taking a low-dose aspirin (takes a nonsteroidal twice a day because of severe knee pains). We recommended that she follow-up with Cardiology to determine if additional workup is needed such as cardiac catheterization. She had an appointment scheduled, but it was canceled due to COVID and she never got it rescheduled. We will assist her in this matter. In the meantime, if she gets severe or persistent chest pain, she should go to the emergency room. Assessment & Plan (2021 1:48 PM 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): She has been having atypical chest pains. The occur a ny time. Yesterday she had a few minutes of discomfort when she was driving. There do not seem to be any definite aggravating or alleviating features. A recent stress test was negative although she did not achieve the target heart rate because her knees and hips hurt to much when she was walking on the treadmill. She was advised to monitor the chest pain and go to the emergency room if she has any severe or persistent symptoms. Assessment & Plan (01/29/2021 11:19 AM CDT): Pt reports intermittent chest pain for months now. 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 She reports it as a tightening and sharp pain in her left chest and can be intermittent for a few hours at a time today. She denies SOB with it, but reports some dizziness with it. Labs from previous OV here were normal except ESR= 55, and CRP = 18.2, CK was normal at 88. EKG today was reviewed with Dr. Aponte and was unchanged since her previous EKG in [address]. [address] Aponte's advice-- we will: 1) start toprol XL 25mg once daily 2) start baby Aspirin once daily 3) nitro for chest pain PRN to see if this helps 4) walking nuclear stress test She will f/u with myself or Dr. Aponte in 2-3 weeks or after results are in. Left hip pain 01/24/2021 08/01/2024 Assessment & Plan (02/17/2021 11:20 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): She has some pain in her left hip and left knee. She is on her feet a lot at work. She is quite obese. I suspect some degenerative arthritis. CRP was somewhat elevated, similar to three years ago when she was in the emergency room. Exam of her joints shows no definite inflammatory change. We will consider additional workup as needed. Assessment & Plan (01/24/2021 2:36 PM CDT): Pt reports chronic hip pain, and feels that sometimes it is going in an out of socket. She would like to get an x-ray today. COVID 12/26/2020 07/11/2022 Overview (07/11/2022): Seen in [facility] ER for sore throat, congestion, a slight cough, and an intermittent MCCARTHY, tested positive. Left leg pain 04/29/2020 09/01/2024 Assessment & Plan (04/29/2020 5:02 PM 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): Posterior upper left thigh pain for about 1 month now. She was treated in the ER on Wednesday of this past weekend for cellulitis with Bactrim DS which she is still taking. Venous doppler of left extremity to be done today. We will await those results and then plan a f/u after we hear about results. Morbid obesity with BMI of 40.0-44.9, adult 12/22/2019 10/12/2020 Overview (10/12/2020): Additional weight gain, BMP >45. Assessment & Plan (04/19/2020 1:19 PM 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): Her weight is approximately unchanged. I encouraged efforts to lose some weight. Internal derangement of left knee 10/17/2019 04/19/2020 Overview (04/19/2020): Added automatically from request for surgery [id number], Left knee arthroscopy on 11/14/2019, partial medial meniscectomy/medial femoral chondroplasty, Dr. Celeste, [facility]. Hypersomnia with sleep apnea 07/15/2017 04/19/2020 Overview (04/19/2020): Sees Dr. Hernandez. Other abnormal glucose 07/03/201704/19 Overview (04/19/2020): Diabetic. Chest pain, atypical 07/02/2017 021 Overview (04/19/2020): Details lacking. Encounter for health-related screening 07/02/2017 04/19/2020 Overview (04/19/2020): Details lacking. Hyperlipidemia 07/02/2017 04/19/2020 Overview (04/19/2020): On meds. Left arm pain 05/22/2017 04/07/2019 Overview (04/07/2019): Hospitalized, cardiac eval negative, see [facility] records. Assessment & Plan (05/22/2017 4:16 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): Unsure cause. Patient states this tightness resolved spontaneously after about 12 hours. Patient denies any chest pain or shortness of breath. No family history of premature CAD. Patient is premenopausal. Patient is a never smoker and denies any illicit drug use. Low suspicion for cardiac cause at this time. Tropes have been negative x3. EKG was normal sinus rhythm. Continue to monitor. Normocytic anemia 05/22/2017 08/01/2024 Overview (07/04/2021): Mild, intermittent. Assessment & Plan (01/18/2022 3:28 PM CDT): She has had a mild and intermittent anemia with no definite trends. The cause is unknown, it could be normal for her. We will continue to monitor periodically. Lab Results Component Value Date WBC 7.1 07/02/2021 HGB 11.8 (L) 07/02/2021 HCT 35.7 07/02/2021 MCV 88.6 07/02/2021 LABPLAT 357 07/02/2021 Assessment & Plan (08/08/2021 2:59 PM CDT): She has had a mild and intermittent normocytic anemia. I do not see an iron profile or B12 level on her chart. We will get those done before her next visit. Dizziness 03/29/2017 07/11/2022 Overview (07/11/2022): Intermittent symptoms dating to about 2017, likely BPPV, saw ENT, Dr. Graham. Assessment & Plan (06/27/2021 4:57 PM CDT): Patient returns for follow up on her dizziness. This has been a chronic issue dating back to at least 2018. She has to date had negative CT of the head and cardiac evaluation. Symptoms however persist. On exam no acute findings noted. Etiology remains unclear. She has done 4 PT sessions with little change. She is referred to ENT but has yet to be seen an will see them later this month. In the meantime will plan 30 day tele to r/o underlying arrhythmia. We will also do 2D echo to r/o any LV dysfunction or WMA. She will return post testing with Dr. Puri or sooner if needed. We will also update labs to r/o any electrolyte disturbance, anemia or thyroid dysfunction. At this time patient to remain hydrated, avoid sudden position changes and take meclizine. Encounters Date Type Department Care Team Description 11/17/2024 11:30 AM CDT Ancillary Procedure [facility] [address] [place] [phone] Acute pain of right shoulder 11/17/2024 10:30 AM CDT Office Visit [facility] [address] [place] [phone] Marques Puri MD Annual visit for general adult medical examination with abnormal findings (Primary Dx); Type 2 diabetes mellitus with other neurologic complication, without long-term current use of insulin; Hypertension associated with type 2 diabetes mellitus (HCC); Hyperlipidemia associated with type 2 diabetes mellitus (HCC); Morbid obesity with BMI of 40.0-44.9, adult (HCC); STACIE (obstructive sleep apnea); Lupus anticoagulant disorder; Left leg pain; Verruca vulgaris; Acute pain of right shoulder 10/27/2024 9:30 AM CDT Office Visit [facility] at [address] [phone] Arya Paniagua DO Primary osteoarthritis of left knee (Primary Dx); Chronic pain of left knee 10/27/[address] [facility] at [address] [phone] Oscar Baeza MD 10/27/[address] [facility] at [address] [phone] Arya Paniagua DO Primary osteoarthritis of left knee (Primary Dx); Chronic pain of left knee; Covington's cyst of knee, left 10/27/[address] [facility] at [address] [phone] Cher Cid MA 10/27/[address] [facility] at [address] [phone] Cher Cid MA 10/25/2024 1:05 PM CDT Lab [address] [phone] Lupus anticoagulant disorder 10/25/2024 Results Follow-Up [facility] [address] [facility] [address] [place] [phone] Fannie Rosa LPN Protime-INR 10/25/2024 Anticoagulation Visit [facility] [address] [facility] [address] [place] [phone] Marques Puri MD Lupus anticoagulant disorder (Primary Dx) 10/23/2024 [facility] [address] [place] [phone] Marques Puri MD Lupus anticoagulant disorder (Primary Dx) 10/21/2024 Results Follow-Up [facility] [address] [phone] Marques Puri MD Protime-INR, Basic metabolic panel, Hemoglobin A1c, eGFR 10/20/2024 3:25 PM CDT Lab [address] [phone] Lupus anticoagulant disorder; Type 2 diabetes mellitus with other neurologic complication, without long-term current use of insulin ([facility]) 10/20/2024 9:00 AM CDT Office Visit [facility] at [address] [phone] Arya Paniagua DO Chronic pain of left knee (Primary Dx) 10/16/2024 Results Follow-Up [facility] at [address] [phone] Arya Paniagua DO Crystal Analysis, Body Fluid, Cell count w/rflx diff, body fluid, Aerobic culture and gram stain Synovial fluid Knee, left, Cell Differential, Body Fluid 10/16/2024 Orders Only [facility] at [address] [phone] Arya Paniagua DO Covington's cyst of knee, left (Primary Dx) 10/11/2024 3:38 PM CDT - 10/11/2024 11:59 PM CDT Hospital Encounter [address] [phone] Primary osteoarthritis of left knee; Covington's cyst of knee, left Discharge Disposition: Discharge to home or self care 10/11/2024 3:30 PM CDT Office Visit [facility] at [address] [place] [phone] Arya Paniagua DO Covington's cyst of knee, left (Primary Dx); Chronic pain of left knee; Primary osteoarthritis of left knee 10/10/2024 Telephone [facility] [address] [facility] [address] [place] [phone] Marques Puri MD RENEWED PT/INR STANDING ORDER @ [facility] 09/25/2024 2:05 PM CDT Lab [address] [phone] Lupus anticoagulant disorder 09/25/2024 9:30 AM CDT Office Visit [facility] at [address] [place] [address] [id number] Arya Paniagua DO Primary osteoarthritis of left knee (Primary Dx); Chronic pain of left knee; Covington's cyst of knee, left 09/25/2024 9:15 AM CDT Ancillary Procedure [facility] at [address] [phone] 09/25/2024 Results Follow-Up [facility] [address] [facility] [address] [place] [phone] Fannie Rosa LPN Protime-INR 09/25/2024 Anticoagulation Visit [facility] [address] [facility] [address] [place] [phone] Marques Puri MD Lupus anticoagulant disorder (Primary Dx) 09/25/2024 Telephone [facility] [address] [place] [phone] Marques Puir MD 09/11/2024 Results Follow-Up [facility] [address] [place] [address] Marques Puri MD Screening Mammogram Bilateral W Chau 09/08/2024 3:30 PM CDT Ancillary Procedure [facility] [address] [place] [phone] Screening breast examination 09/08/2024 3:00 PM CDT Office Visit [facility] [address] [place] [phone] Annia Garza MD Encounter for gynecological examination without abnormal finding (Primary Dx); Acute vulvitis 09/08/2024 10:00 AM CDT Office Visit [facility] [address] [place] [phone] Christina Hernandez MD Cerebrovascular accident (CVA) due to thrombosis of left middle cerebral artery (HCC) (Primary Dx); STACIE (obstructive sleep apnea); Hypersomnia with sleep apnea; Morbid obesity with BMI of 40.0-44.9, adult (HCC) 09/08/2024 Orders Only [facility] [address] [place] [phone] Annia Garza MD Screening mammogram, encounter for (Primary Dx) 08/31/2024 Telephone [facility] [address] [place] [phone] Marques Puri MD 08/30/2024 Results Follow-Up [facility] [address] [place] [phone] Fannie Rosa LPN Protime-INR 08/30/2024 Anticoagulation Visit [facility] [address] [place] [address] Marques Puri MD Lupus anticoagulant disorder (Primary Dx) 08/29/2024 4:00 PM CDT Office Visit [facility] [address] [place] [phone] Enedina Nuñez NP Headache syndrome (Primary Dx); Hypertension associated with type 2 diabetes mellitus (HCC); Vertigo; Chronic pain of left knee; Morbid obesity with BMI of 45.0-49.9, adult (HCC) 08/29/2024 3:30 PM CDT Lab [facility] [address] [place] [phone] Lupus anticoagulant disorder 08/29/2024 Telephone [facility] [address] [place] [address] Marques Puri MD from Last 3 Months Immunizations Immunization Administration Dates Next Due Influenza, Trivalent, Preser vative Free, Intramuscular 01/06/2016 Influenza, Unspecified 05/08/2024(Deferred: Jovita ent Refused) MMR 03/06/2019 Pfizer SARS-CoV-2 Monovalent Vaccination (12+ Yrs) PURPLE 04/19/2021,04/05/2021 Pneumococcal Conjugate PCV 13 10/06/2019 Pneumococcal Polysaccharide PPV23 08/08/2021 Tdap 03/06/2019 Surgical History Surgery Date Site/Laterality Comments SECTION, CLASSIC CHOLECYSTECTOMY MAMMOGRAPHY 07/26/2012 Bilateral Negative, [facility]. DIABETES EYE EXAM 10/20/2018 Bilateral No diabetic retinopathy, Richy Cuff, OD. MAMMOGRAPHY 04/21/2018 Bilateral Negative, AMS. SECTION 9 1, 9 3, 9 6 TUBAL LIGATION 03/29/1995 - 03/28/1996 with last MAMMOGRAPHY 04/07/2019 Bilateral Negative, AMS. KNEE ARTHROSCOPY 11/14/2019 Left Left knee arthroscopic partial medial meniscectomy/medial femoral chondroplasty, Dr. Celeste, [facility]. MAMMOGRAPHY 04/26/2020 Bilateral Negative, AMS. MAMMOGRAPHY 08/08/2021 Bilateral Negative, AMS. DIABETES EYE EXAM 06/06/2022 Bilateral No diabetic retinopathy, other findings present, Jay Jones, OD. CARPAL TUNNEL RELEASE 04/11/2024 Left Also cubital tunnel. Dr. Zamudio. DIABETES EYE EXAM 05/12/2024 Bilateral Negative, Richy Cuff, OD, [facility]. MAMMOGRAPHY 09/08/2024 Bilateral Negative, AMS STEROID INJECTION KNEE 10/11/[address] Paniagua. Medical History Medical History Date Comments Hypertension Hyperlipemia Left arm pain 05/22/2017 Hospitalized, ca rdiac eval negative, see [facility] records. Type 2 diabetes mellitus wit hout complication (HCC) 03/08/2017 Morbid obesity ([facility]) 09/26/1990 Started joyce buchanan with her pregnancies (x3, 91-96) and continued to gain afterwards. Hyperlipidemia associated wi th type 2 diabetes mellitus (HCC) 03/08/2017 Sleep apnea Hypersomnia with sleep apnea 07/15/[address] Hernandez. Encounter for health-related screening 8 Details lacking. Chest pain, atypical 07/02/2017 Details lac franko. Other abnormal glucose 07/03/2017 Diabetic. Hyperlipidemia 07/02/2017 On meds. Internal derangement of left knee 10/17/2019 Added automatically from request for surgery [id number], Left knee arthroscopy on 11/14/2019, partial medial meniscectomy/medial femoral chondroplasty, Dr. Celeste, [facility]. Morbid obesity with BMI of 4 0.0-44.9, adult ([facility]) 12/22/2019 Additional weight gain, BMP >45. Covid-19 12/26/2020 Muscle cramping 01/24/2021 Mostly nocturnal . Chicken pox Does not remembe r the age, but definitely had it. Dizziness 03/29/2017 Intermittent sym ptoms dating to about 2017, likely BPPV, saw ENT, Dr. Graham. Type 2 diabetes mellitus wit hout complication (HCC) 03/08/2017 Complicated by stroke, June 2023. Right sided weakness 07/08/2023 Due to jane na radiata stroke, see hospital records. Lupus anticoagulant disorder Acute febrile illness 01/13/2024 Due to rig ht perihilar pneumonia. Seen and treated in ER. Stroke ([facility]) 07/08/2023 Family History Medical History Relation Name Comments Madera's disease Brother 1 Amari Poornima's disease Brother 2 Colin Other Father Addison Burt Sr. House f diana - cause of Stroke Father Addison Burt Sr. Madera's disease Maternal Grandmother Poornima's disease Mother Other Mother MVA - cause of Other Other 4 Family history of Cancer, cervical; Cause of : Family history of Cancer, cervical Other Other 5 Family history of Cancer, gastric; Cause of : Family history of Cancer, gastric Melanoma Other 6 Family history of Melanoma; Diabetes Other 7 Family history of Diabetes mellitus; Diabetes Paternal Grandfather Sj Burt Hypertension Sister 1 Juli Mooney Stomach cancer Sister 1 Juli Mooney Cervical cancer Sister 2 Joana Madera's disease Sister 2 Joana Patient thinks she had it but she was never tested. Relation Name Status Comments Brother 1 Amari Brother 2 Colin Father Addison Burt Sr. (Age 54) Maternal Grandmother Mother (Age 52) Other 1 Other 2 Other 3 Other 4 Other 5 Other 6 Other 7 Paternal Grandfather Sj Burt Sister 1 Juli Mooney Sister 2 Joana Social History Tobacco Use Types Packs/Day Years Used Date Smoking Tobacco: Never Smokeless Tobacco: Never Tobacco Cessation:Counseling Given: Not Answered Alcohol Use Standard Drinks/Week Comments No 0 (1 standard drink = 0.6 oz pur e alcohol) very rare [facility] Utilities Answer Date Recorded In the past 12 months has [employer], gas, oil, or water [employer] threatened to shut off services in your [...] often do you attend chur ch or buddhism services? Never 07/13/2023 Do you belong to any clubs o r organizations such as christian groups, unions, fraternal or athletic groups, or [...] points, staff should administer the PHQ-9) 0 11/17/2024 [facility] - Occupational Stress [...] place to sleep or slept in a custodial (including now)? 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 file Not on file Not on file Obstetrics History Para Term AB IAB SAB Ectopic Multiple Livin g Live Births 3 3 3 0 0 3 3 Date Outcome GA Total Labor Labor/2nd/3rd Weight Sex Type Anes PTL Antoinette A1 A5 Name Clin 1989 Term 3.629 kg (8 lb) F CS-Un spec Living 1992 Term 3.629 kg (8 lb) M CS-Un spec Living 1995 Term 3.629 kg (8 lb) F CS-Un spec Living Last Filed Vital Signs Vital Sign Reading Time Taken Comments Blood Pressure 122/72 11/17/2024 10:19 AM CDT Pulse 69 11/17/2024 10:19 AM CDT Temperature 36.3 C (97.3 F) 11/17/2024 10:19 AM CDT Respiratory Rate 16 11/17/2024 10:19 AM CDT Oxygen Saturation 97% 11/17/2024 10:19 AM CDT Inhaled Oxygen Concentration - - Weight 115.2 kg (254 lb) 11/17/2024 10:19 AM CDT Height 163.8 cm (5' 4.49) 11/17/2024 10:19 AM C DT Body Mass Index 42.94 11/17/2024 10:19 AM CDT Plan of Treatment Health Maintenance Due Date Last Done Comments Colon Cancer Screening-Colonoscopy 1970 Zoster Vaccine (1 of 2) 2021 Covid-19 Vaccine (2023-2 5 season) 2023 04/19/2021, 04/05/2021 Foot Exam 10/21/2024 10/22/2023, 06/282023, 01/02/2022, Additional history exists Influenza Vaccine (#1) 2024 01/06/2016 Albumin Creatinine Ratio, Urine 04/10/2025 04/10/2024, 09/17/2023, 06/26/2022, Additional history exists Lipid Panel 04/10/2025 04/10/2024, 08/28, 07/09/2023, Additional history exists Hemoglobin A1C 04/22/2025 10/20/2024, 03/29, 09/17/2023, Additional history exists Dilated Eye Exam 05/12/2025 05/12/2024, 01/2023, 06/26/2020, Additional history exists Breast Cancer Screening-Mammogram 09/08/2025 09/08/2024, 08/20/2023, 08/14/2022, Additional history exists Regular Well Visit/Exam 18-64 09/08/2025, 10/22/2023, 08/20/2023, Additional history exists eGFR 10/20/2025 10/20/2024, 04/0 09/2024, 04/10/2024, Additional history exists Depression Screening 11/17/2025 11/17/2024, 10/22/2023, 07/12/2023, Additional history exists Pneumococcal vaccine <65 (3 of 3 - PCV20 or PCV21) 08/08/2026 08/08/2021, 10/06/2019 Cervical Cancer Screening 08/19/20282023, 08/20/2023, 07/07/2019 DTaP/Tdap/Td Vaccine (2 - Td or Tdap) 03/06/2029 03/06/2019 Hepatitis B Screening Completed 09/17/2023 Hepatitis C Screening Completed 09/17/2023 Procedures Procedure Name Priority Date/Time Associated Diagnosis Comments PROTIME-INR Routine 10/25/2024 1:20 PM CDT Lupus anticoagulant disorder EGFR Routine 10/20/2024 3:33 PM CDT Type 2 diabetes mellitus with other neurologic complication, without long-term current use of insulin (HCC) HEMOGLOBIN A1C Routine 10/20/2024 3:33 PM CDT Type 2 diabetes mellitus with other neurologic complication, without long-term current use of insulin (HCC) BASIC METABOLIC PANEL Routine 10/20/2024 3:33 PM CDT Type 2 diabetes mellitus with other neurologic complication, without long-term current use of insulin (HCC) PROTIME-INR Routine 10/20/2024 3:33 PM CDT Lupus anticoagulant disorder CELL DIFFERENTIAL, BODY FLUID Routine 10/11/2024 3:38 PM CDT Primary osteoarthritis of left knee Covington's cyst of knee, left CELL COUNT W/REFLEX DIFFERENTIAL, BODY FLUID Routine 10/11/2024 3:38 PM CDT Primary osteoarthritis of left knee Covington's cyst of knee, left CRYSTAL ANALYSIS, BODY FLUID Routine 10/11/2024 3:38 PM CDT Primary osteoarthritis of left knee Covington's cyst of knee, left AEROBIC CULTURE AND GRAM STAIN Routine 10/11/2024 3:38 PM CDT Primary osteoarthritis of left knee Covington's cyst of knee, left RI ARTHROCENTESIS ASPIR&/INJ MAJOR JT/BURSA W/US Routine 10/11/2024 3:30 PM CDT Covington's cyst of knee, left RI ARTHROCENTESIS ASPIR&/INJ MAJOR JT/BURSA W/O US Routine 10/11/2024 3:30 PM CDT Primary osteoarthritis of left knee PROTIME-INR Routine 09/25/2024 2:09 PM CDT Lupus anticoagulant disorder XR KNEE LEFT 4 OR MORE VIEWS Schedule Routine, Read Routine (OP Routine) 09/25/2024 9:36 AM CDT Chronic pain of left knee SCREENING MAMMOGRAM BILATERAL W CHAU Schedule Routine, Read Routine (OP Routine) 09/08/2024 3:39 PM CDT Screening breast examination PROTIME-INR Routine 08/29/2024 3:04 PM CDT Lupus anticoagulant disorder HM DIABETES EYE EXAM Routine 05/12/2024 11:43 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 ALBUMIN CREATININE RATIO, URINE Routine 04/10/2024 9:16 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 Annual visit for general adult medical examination with abnormal findings Type 2 diabetes mellitus with other neurologic complication, without long-term current use of insulin (HCC) LIPID PANEL Routine 04/10/2024 9:14 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 Annual visit for general adult medical examination with abnormal findings Hyperlipidemia associated with type 2 diabetes mellitus (HCC) HEPATITIS C ANTIBODY Routine 09/17/2023 9:24 AM CDT Need for hepatitis C screening test HIGH RISK HPV DNA DETECTION WITH GENOTYPING Routine 08/20/2023 3:51 PM CDT Screening for malignant neoplasm of the cervix from Last 3 Months or Most Recently Relevant to Health Maintenance Results * (ABNORMAL) Protime-INR (10/25/2024 1:20 PM CDT) PT 27.3(H) 9.7 - 13.0 sec [facility] ([place]) INR 2.48(H) 0.90 - 1.20 [facility] ([place]) Comment: Interpretive data Oral anticoagulant therapeutic ranges: Venous thromboembolism prophylaxis or treatment: 2.0-3.0 CARDIOLOGY Standard range: 2.0-3.0 High-intensity range: 2.5-3.5 Refer to indication-specific guidelines for appropriate target ranges for prosthetic heart valve replacement. Current interpretive data was last revised on 2019. Blood 10/25/2024 1:20 PM CDT 10/25/2024 1:25 PM CDT us Marques Puri MD LAB BLOOD ORDERABLES Final Re sult [facility] ([place]) 1 [facility] Department [place] [address] * eGFR (10/20/2024 3:33 PM CDT) eGFR >90 >=60 mL/min/1. 73 m2 Comment: Interpretive Data Reference Interval Normal >/= 90 mL/min/1.73m2 Mildly decreased* 60 - 89 mL/min/1.73m2 Mildly to moderately decreased 45 - 59 mL/min/1.73m2 Moderately to severely decreased 30 - 44 mL/min/1.73m2 Severely decreased 15 - 29 mL/min/1.73m2 Kidney Failure < 15 mL/min/1.73m2 *Relative to young adult level Estimated glomerular filtration rate is determined by the 2020 CKD-EPI equation recommended by the National Kidney Foundation (A Unifying Approach to GFR Estimation: Recommendations of the NKF-ASK Task Force on Reassessing the Inclusion of Race in Diagnosing Kidney Disease, JASN 2020). The CKD-EPI equation should not be used for patients with unstable renal function and has not been validated in children and those over 70. Current interpretive data was last reviewed 2021. Blood 10/20/2024 3:33 PM CDT 10/20/2024 4:08 PM CDT us Marques Puri MD LAB BLOOD ORDERABLES Final Re sult Performing Organization Address City/[facility]/ZIP Co de Phone Number JIMY HUTSON) 1 [facility] Department [place] [employer] [place] [address] * (ABNORMAL) Protime-INR (10/20/2024 3:33 PM CDT) PT 25.6(H) 9.7 - 13.0 sec [facility] ([place]) INR 2.33(H) 0.90 - 1.20 [facility] ([place]) Comment: Interpretive data Oral anticoagulant therapeutic ranges: Venous thromboembolism prophylaxis or treatment: 2.0-3.0 CARDIOLOGY Standard range: 2.0-3.0 High-intensity range: 2.5-3.5 Refer to indication-specific guidelines for appropriate target ranges for prosthetic heart valve replacement. Current interpretive data was last revised on 2019. Blood 10/20/2024 3:33 PM CDT 10/20/2024 4:08 PM CDT Marques Puri MD LAB BLOOD ORDERABLES Final Re sult Performing Organization Address [facility] Co de Phone Number [facility] ([place]) [address] [place] [phone] * (ABNORMAL) Hemoglobin A1c (10/20/2024 3:33 PM CDT) Hgb A1C 6.2(H) 4.0 - 5.6 % [facility] ([place]) Estimated Average Glucose 131 mg/dL [facility] ([place]) Comment: The ADA recommends reporting an estimated Average Glucose (eAG) with all Hemoglobin A1c results using the equation derived from a study of 507 normal and diabetic adults. Minority populations were underrepresented and children were not included. (Diabetes Care 31:4225-1276, 2008). The eAG is not equivalent to a fasting glucose. Testing performed by: [facility], [facility], [place], [address] Blood 10/20/2024 3:33 PM CDT 10/20/2024 4:08 PM CDT Marques Puri MD LAB BLOOD ORDERABLES Final Re sult Performing Organization Address [facility] Co de Phone Number [facility] ([place]) [address] [place] [address] * (ABNORMAL) Basic metabolic panel (10/20/2024 3:33 PM CDT) Sodium 136 135 - 145 mmol/L [facility] ([place]) Potassium, pl 3.8 3.3 - 4.9 mmol/L [facility] ([place]) Chloride 101 97 - 110 mmol/L [facility] ([place]) CO2 23 22 - 32 mmol/L [facility] ([place]) Anion gap 12 2 - 15 mmol/L [facility] ([place]) BUN 16 6 - 25 mg/dL [facility] ([place]) Creatinine 0.54(L) 0.60 - 1.10 mg/dL [facility] ([place]) Glucose 137 70 - 199 mg/dL [facility] ([place]) Comment: Interpretive Data Fasting glucose >/= 126 mg/dl is diagnostic for diabetes. Fasting is defined as no caloric intake for at least 8 hours. Fasting glucose between 100 mg/dl to 125 mg/dl is diagnostic of prediabetes. In a patient with classic symptoms of hyperglycemia or hyperglycemic crisis, a random glucose >/= 200 mg/dl is diagnostic for diabetes. In the absence of unequivocal hyperglycemia, results should be confirmed by repeat testing. The classification and Diagnosis of Diabetes Diabetes Care 2021; 46: S19-S40. Current interpretive data was last revised 2022. Calcium 9.5 8.5 - 10.3 mg/dL [facility] ([place]) Blood 10/20/2024 3:33 PM CDT 10/20/2024 4:08 PM CDT us Marques Puri MD LAB BLOOD ORDERABLES Final Re sult JIM[facility] ([place]) 1 [facility] [place] [address] * Crystal Analysis, Body Fluid (10/11/2024 3:38 PM CDT) Pathologist [facility] Specimen type, fld Synovial Body site, fld Left knee [facility] Crystals Not Present [facility] Fluid 10/11/2024 3:38 PM CDT 10/11/2024 10:47 PM CDT Arya Paniagua DO LAB BODY FLUIDS AND ST OOLS ORDERABLES Final Result JIM[facility] [id number] [employer] Department [place] [address] * Cell Differential, Body Fluid (10/11/2024 3:38 PM CDT) Pathologist [facility] Total cells diffed 100 % Comment: Interpretive Data Unless otherwise specified, the reference range and other method performance specifications have not been established for CSF/Body Fluid tests. The test results should be integrated into the clinical context for interpretation. Current interpretive data was last revised on 2018. Neutrophils, fld 4 % [facility] Lymphs, fld 86 % [facility] Monocyte, fld 10 % [facility] Fluid 10/11/2024 3:38 PM CDT 10/11/2024 9:32 PM CDT Arya Paniagua DO LAB BODY FLUIDS AND ST [employer] ORDERABLES Final Result Performing Organization Address [facility] Co de Phone Number JIMY GARCES [phone] [employer] [place] [address] * Cell count w/rflx diff, body fluid (10/11/2024 3:38 PM CDT) [facility] Specimen type, fld Synovial Body site, fld Left Knee [facility] Color, fld Straw [facility] Clarity, fld Clear [facility] Nucleated cells, fld 820 /cumm [facility] Comment: Interpretive Data Unless otherwise specified, the reference range and other method performance specifications have not been established for CSF/Body Fluid tests. The test results should be integrated into the clinical context for interpretation. Current interpretive data was last revised on 2018. RBC, fld <2,000 /cumm [facility] Fluid 10/11/2024 3:38 PM CDT 10/11/2024 9:32 PM CDT Arya Paniagua DO LAB BODY FLUIDS AND ST [employer] ORDERABLES Final Result Performing Organization Address [facility] Co de Phone Number JIMY GARCES [phone] [employer] [place] [address] * (ABNORMAL) Aerobic culture and gram stain Synovial fluid Knee, left (10/11/2024 3:38 PM CDT) Direct Specimen Exam Stain: No polymorphonuclear leukocytes seen. No organisms seen. Comment:Testing performed by : [facility], [address], [place]., [address] Report Final Report: Rare Staphylococcus hominis (.) JIMY GARCES Comment:Testing performed by : [facility], [address], [place]., [address] Organism STAPHYLOCOCCUS HOMINIS JIMY Synovial fluid (Knee, left) 10/11/2024 3:38 PM CDT 10/12/2024 12:42 AM CDT Narrative JIMY GARCES - 10/17/2024 10:11 AM CDT Testing performed by [facility] ([phone]) Specimens submitted from normally sterile body sites will have all bacterial morphotypes identified. Specimens that contain grossly mixed beba and/or are from body sites that are not normally sterile will be examined for Staphylococcus aureus, Pseudomonas aeruginosa, beta-hemolytic strep, vancomycin-resistant Enterococcus and fungus. If any of these are isolated, the organism will be reported. Current interpretive data was last revised on 2016. Organism Antibiotic Method Susceptibility Staphylococcus hominis Doxycycline (STEVE) INTERPRETATI ON Susceptible Staphylococcus hominis Linezolid (STEVE) INTERPRETATI ON Susceptible Staphylococcus hominis Trimethoprim with Sulfamethoxazole (STEVE) INTERPRETATION Resistant Staphylococcus hominis Clindamycin (STEVE) INTERPRETATI ON Susceptible Staphylococcus hominis Erythromycin (STEVE) INTERPRETATI ON Susceptible Staphylococcus hominis Vancomycin (STEVE) INTERPRETATI ON Susceptible Staphylococcus hominis Oxacillin (STEVE) INTERPRETATI ON Susceptible Staphylococcus hominis Cefazolin (STEVE) INTERPRETATI ON Susceptible Staphylococcus hominis Ceftriaxone (STEVE) INTERPRETATI ON Susceptible us Arya Paniagua DO LAB MICROBIOLOGY - GEN ERAL ORDERABLES Final Result JIM[facility] [address] [address] Department [place] [address] * RI ARTHROCENTESIS ASPIR&/INJ MAJOR JT/BURSA W/O US (10/11/2024 3:30 PM CDT) Narrative Arya Paniagua DO - 10/11/2024 3:30 PM CDT Arya Paniagua DO 10/11/2024 3:56 PM Large Joint Arthrocentesis: L knee Performed by: Arya Paniagua DO Authorized by: Arya Paniagua DO Large Joint Injection/Aspiration: Consent Given by: Patient Site marked: the procedure site was marked Timeout: prior to procedure the correct patient, procedure, and site was verified Verbal consent obtained: Yes Supporting Documentation: Indications: Pain Procedure Details: Location: Knee Site: L knee Prep: patient was prepped and draped in usual sterile fashion Prep: patient was prepped using a clean technique Needle Size: 22 G Approach: Anterolateral Ultrasound guided: No Fluroscopic guidance: No Medications: 5 mL lidocaine 20 mg/mL (2 %); 80 mg methylPREDNISolone acetate 80 mg/mL Arya Paniagua DO IN CLINIC/BEDSIDE NADEEM PELAEZ Final Result * RI ARTHROCENTESIS ASPIR&/INJ MAJOR JT/BURSA W/US (10/11/2024 3:30 PM CDT) Narrative Arya Paniagua DO - 10/11/2024 3:30 PM CDT Arya Paniagua DO 10/11/2024 3:56 PM Cyst Aspiration w/ Ultrasound: L knee Performed by: Arya Paniagua DO Authorized by: Arya Paniagua DO Cyst Aspiration: Consent Given by: Patient Site marked: the procedure site was marked Timeout: prior to procedure the correct patient, procedure, and site was verified Verbal consent obtained?: Yes Written consent obtained?: No Supporting Documentation: Indications: Cyst Procedure Details: Cyst Type: Covington's (Popliteal) Cyst Location: Knee Site: L knee Prep: patient was prepped and draped in usual sterile fashion Prep: patient was prepped using a clean techinque Ultrasound guidance: Yes Ultrasound guidance used for: Real-time guidance Sterile ultrasound techniques: Sterile gel and sterile probe covers were used Ultrasound note: Ultrasound-guided left Covington's cyst aspiration Patient name: Fanta Howard Performing physician: Arya Paniagua DO, DARSHANA, CAQSM Patient lying in the prone position with the left knee extended. The posterior knee was sterilized using ChloraPrep. Sterile technique was used over the linear transducer. Over the medial aspect of the posterior knee Covington's cyst was identified and found to be a proximally 4 cm x 4 cm in length and width. The area was checked with PDI to make sure that there was no vasculature in the area and once this was confirmed, in the long axis to the knee, implant of the transducer, a an 18 gauge 1.5 in needle was inserted. The needle tip was identified in the subcutaneous tissue and advanced, in real-time, to the Covington's cyst. Once noted within the Covington's cyst aspiration was obtained. A proximally 5 cc of straw-colored translucent fluid was withdrawn. The Covington's cyst was shown to completely resolve on ultrasound for confirmation of the aspiration. Needle tip was removed and the area was cleansed and covered with a gauze and pressure wrap Impression: 1 - successful Covington's cyst aspiration under ultrasound guidance as noted above Arya Paniagua DO IN CLINIC/BEDSIDE N[facility]EM PELAEZ Final Result * (ABNORMAL) Protime-INR (09/25/2024 2:09 PM CDT) PT 29.5(H) 9.7 - 13.0 sec JIMY CADE (MERIGOLD) INR 2.68(H) 0.90 - 1.20 JIMY CADE (MERIGOLD) Comment: Interpretive data Oral anticoagulant therapeutic ranges: Venous thromboembolism prophylaxis or treatment: 2.0-3.0 CARDIOLOGY Standard range: 2.0-3.0 High-intensity range: 2.5-3.5 Refer to indication-specific guidelines for appropriate target ranges for prosthetic heart valve replacement. Current interpretive data was last revised on 2019. Blood 09/25/2024 2:09 PM CDT 09/25/2024 2:16 PM CDT Marques Puri MD LAB BLOOD ORDERABLES Final Re sult JIMY CADE (MERIGOLD) 1 [facility] [place] [address] * XR Knee Left 4 or More Views (09/25/2024 9:36 AM CDT) Anatomical Region Laterality Modality Lower Extremities, Knee Left Digital Radiography 09/25/2024 7:56 PM CDT Narrative 09/25/2024 7:59 PM CDT EXAM DESCRIPTION: 1. XR KNEE LEFT 4 OR MORE VIEWS REASON FOR STUDY: pain Pt complains of chronic knee pain worsening recently. Prior meniscus surgery in 2019. No recent injury FINDINGS: Four views submitted with comparison 03/08/2020. No acute fracture. Severe medial predominant tricompartmental left knee osteoarthritis. Small knee effusion is present. IMPRESSION: 1. Severe medial predominant tricompartmental left knee osteoarthritis. THIS IS AN ELECTRONICALLY VERIFIED FINAL REPORT 09/25/2024 7:59 PM - Electronically signed by Arya Graham M.D. T: Report ID: [id number] Reading Location: [id number] Procedure Note Arya Graham MD - 09/25/2024 EXAM DESCRIPTION: 1. XR KNEE LEFT 4 OR MORE VIEWS REASON FOR STUDY: pain Pt complains of chronic knee pain worsening recently. Prior meniscussurgery in 2019. No recent injury FINDINGS: Four views submitted with comparison 03/08/2020. No acute fracture. Severe medial predominant tricompartmental left knee osteoarthritis. Small knee effusion is present. IMPRESSION: 1. Severe medial predominant tricompartmental left kneeosteoarthritis. THIS IS AN ELECTRONICALLY VERIFIED FINAL REPORT 09/25/2024 7:59 PM - Electronically signed by Arya Graham M.D. T: Report ID: [id number] Reading Location: [id number] Arya Paniagua DO IMG XR PROCEDURES Altagracia l Result * Screening Mammogram Bilateral W Chau (09/08/2024 3:39 PM CDT) Anatomical Region Laterality Modality Breast Bilateral Mammography Impressions 09/08/2024 4:18 PM CDT Bilateral No evidence of malignancy in either breast. OVERALL BI-RADS FINAL ASSESSMENT: 1 - Negative RECOMMENDATION: Recommend bilateral annual screening mammography. Narrative 09/08/2024 4:18 PM CDT EXAMINATION: Screening Mammogram Bilateral W Chau: 09/08/2024 COMPARISON: Relevant prior studies available at the time of interpretation were reviewed. TECHNIQUE: Mammography was performed with 2D and digital breast tomosynthesis (DBT) images. CAD was utilized. BREAST PARENCHYMAL COMPOSITION: There are scattered areas of fibroglandular density. FINDINGS: Bilateral There is no suspicious mass, calcification, or architectural distortion in either breast. Annia Garza MD IMG MAMMO PROCEDURES Final Result * (ABNORMAL) Protime-INR (08/29/2024 3:04 PM CDT) PT 22.0(H) 9.7 - 13.0 sec Comment:Testing performed by : [facility], [address] [place] [address]., [id number] INR 2.01(H) 0.90 - 1.20 JIMY GARCES Comment: Interpretive data Oral anticoagulant therapeutic ranges: Venous thromboembolism prophylaxis or treatment: 2.0-3.0 CARDIOLOGY Standard range: 2.0-3.0 High-intensity range: 2.5-3.5 Refer to indication-specific guidelines for appropriate target ranges for prosthetic heart valve replacement. Current interpretive data was last revised on 2019. Testing performed by: [facility], [address] [place] [address]., [address] Blood 08/29/2024 3:04 PM CDT 08/29/2024 5:54 PM CDT Marques Puri MD LAB BLOOD ORDERABLES Final Re sult [facility] [address] [facility] Department [place] [address] * DIABETES EYE EXAM (05/12/2024 11:43 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) SCRIBED DIABETIC DILATED EYE EXAM Normal Historical Provider HEALTH MAINTENANCE Final Result * Albumin Creatinine Ratio, Urine (04/10/2024 9:16 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) Albumin Ur <12.0 mg/L Comment: Interpretive Data No reference range established. Current interpretive data was last revised 2018. Testing performed by: [facility], [address] [place] [address]., [id number] Creatinine Ur 69.3 mg/dL JIMY CADE (KEYUR) Comment: Interpretive Data No reference range established. Current interpretive data was last revised 2018. Testing performed by: [facility], [address] [place] [address]., [id number] Albumin Creatinine Ratio, Ur <17 1 - 29 mg/g JIMY CADE (KEYUR) Comment:Testing performed by : [facility], [address] [place] [address]., [id number] Urine 04/10/2024 9:16 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 04/10/2024 11:34 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 us Marques Puri MD LAB URINE ORDERABLES Final Re sult JIMY CADE (KEYUR) 1 [facility] Department [place] [address] * Lipid panel (04/10/2024 9:14 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) Cholesterol 134 30 - 199 mg/dL Comment: Interpretive Data Ages < or = 19 years Acceptable: <170 mg/dL Borderline high: 170-199 mg/dL High: >or= 200 mg/dL Ages > or = 20 years Desirable: <200 mg/dL Borderline high: 200-239 mg/dL High: >or= 240 mg/dL Literature References: 1. Expert Panel on Integrated Guidelines for Cardiovascular Health and Risk Reduction in Children and Adolescents. Pediatrics 2011;128:S213 2. NCEP Expert Panel. Circulation 2004;110:227 Current Interpretive Data was last revised on 2017. Triglycerides 131 <=149 mg/dL JIMY CADE (KEYUR) Comment: Interpretive Data Ages < or = 9 years Acceptable: <75 mg/dL Borderline high: 75-99 mg/dL High: >or= 100 mg/dL Ages 10 to 20 years Acceptable: <90 mg/dL Borderline high: 90-129 mg/dL High: >or= 130 mg/dL Ages > or = 20 years Desirable: <150 mg/dL Borderline high: 150-199 mg/dL High: 200-499 mg/dL Very high: >or= 499 mg/dL Literature References: 1. Expert Panel on Integrated Guidelines for Cardiovascular Health and Risk Reduction in Children and Adolescents. Pediatrics 2011;128:S213 2. NCEP Expert Panel. Circulation 2004;110:227 Current Interpretive Data was last revised on 2017. HDL 53 >=40 mg/dL JIMY Becerril (KEYUR) Comment: Interpretive Data Ages < or = 19 years Acceptable: >45 mg/dL Borderline low: 40-45 mg/dL Low: <40 mg/dL Ages > or = 20 years Desirable: >or= 60 mg/dL Low: <40 mg/dL Literature References: 1. Expert Panel on Integrated Guidelines for Cardiovascular Health and Risk Reduction in Children and Adolescents. Pediatrics 2011;128:S213 2. NCEP Expert Panel. Circulation 2004;110:227 Current Interpretive Data was last revised on 2017. LDL, calculated 58 <=129 mg/dL JIMY CADE (KEYUR) Comment: Interpretive Data Ages < or = 19 years Acceptable: <110 mg/dL Borderline high: 110-129 mg/dL High: >or= 130 mg/dL Ages > or = 20 years Optimal: <100 mg/dL Near optimal: 100-129 mg/dL Borderline high: 130-159 mg/dL High: >160 mg/dL Calculated using the Mauro LDL-C estimating equation. This equation was implemented on 2023. Prior to this date LDL-C was estimated using the Friedewald equation. Literature References: 1. Expert Panel on Integrated Guidelines for Cardiovascular Health and Risk Reduction in Children and Adolescents. Pediatrics 2011;128:S213 2. NCEP Expert Panel. Circulation 2004;110:227 3. Mauro Chavez et al. NOHEMI Cardiol. 2020 July 27;5(5):540-548. doi: 10.1001/jamacardio.2020.0013 Current Interpretive Data was last revised on 2023. Non-HDL Cholesterol 81 mg/dL JIMY CADE (KEYUR) Comment: Interpretive Data Ages < or = 19 years Acceptable: <120 mg/dL Borderline high: 120-144 mg/dL High: >145 mg/dL Ages > or = 20 years When triglycerides are >200 mg/dL, Non-HDL cholesterol is a secondary target of therapy with treatment goals that are 30 mg/dL greater than the LDL cholesterol target. Literature References: 1. Expert Panel on Integrated Guidelines for Cardiovascular Health and Risk Reduction in Children and Adolescents. Pediatrics 2011;128:S213 2. NCEP Expert Panel. Circulation 2004;110:227 Current Interpretive Data was last revised on 2017. Chol/HDL ratio 3 KEILANE Tony CADE (MERIGOLD) Blood 04/10/2024 9:14 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 04/10/2024 9:33 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 Marques Puri MD LAB BLOOD ORDERABLES Final Re sult Performing Organization Address City/[facility]/ZIP Co de Phone Number JIMY CADE (MERIGOLD) [address] [place] [address] [place] [address] * Hepatitis C antibody Blood (09/17/2023 9:24 AM CDT) Hep C Ab Nonreactive Nonreactive Comment: Interpretive Data Nonreactive: Antibodies to HCV not detected. Does NOT exclude the possibility of recent exposure to HCV. Equivocal: Equivocal for HCV antibodies. Supplemental molecular testing will be automatically performed to determine infection status in accordance with current CDC screening recommendations. Reactive: Positive for HCV antibodies. This may represent current or past HCV infection. Supplemental molecular testing will be automatically performed to determine current infection status in accordance with current CDC screening recommendations. Interpretive data was last revised on 2019. Testing performed by: [facility], [address] [place] [address]., [address] Blood 09/17/2023 9:24 AM CDT 09/17/2023 12:30 PM CDT Marques Puri MD LAB MICROBIOLOGY - GENERAL OR DERABLES Final Result Performing Organization Address City/[facility]/ZIP Co de Phone Number JIMY [address] Department [place] [employer] [place] [address] * High Risk HPV DNA Detection with Genotyping (Molecular component) (08/20/2023 3:51 PM CDT) HPV HR 16 Not Detected Not Detected [facility] Comment:Testing performed by : [facility], [address] [place]., [address] HPV HR 18 Not Detected Not Detected JIMY GARCES Comment:Testing performed by : [facility], [address] [place]., [address] HPV HR Non 16/18 Not Detected Not Detected JIMY GARCES Comment: Interpretive Data Nucleic acid amplification for detection of high-risk Human Papilloma virus (HPV) is performed by the Brandy Jojo 6800 HPV test. This assay specifically detects HPV-16 and HPV-18 genotypes. The following HPV genotypes are detected as high-risk HPV: HPV-31, 33, 35, ,39, 45, 51, 52, 56, 58, 59, 66, and 68. This assay has been approved by the [place] Food and Drug Administration for detection of HPV in cervical specimens collected by a physician using an endocervical brush/spatula or cervical broom and placed in the ThinPrep Pap Test PreservCyt collection containers. The performance characteristics of this test have been verified by the [facility] Molecular Infectious Disease laboratory. Correlate with separately reported cytology results, as applicable. Interpretive data last revised 22 Testing performed by: [facility], [address] [place]., [address] Endocervical 08/20/2023 3:51 PM CDT 08/24/2023 12:48 PM CDT Narrative JIMY - 08/24/2023 8:01 PM CDT Clinical history and diagnosis->DX Z12.4 Testing type->Screening Last menstrual period (date if known)->N/A Menstrual status->Postmenopausal us Annia Garza MD LAB BODY FLUIDS AND S TOOLS ORDERABLES Final Result JIMY [place] [address] Department [place] [address] [facility] from Last 3 Months or Most Recently Relevant to Health Maintenance Insurance MEDICAID [facility] CHOICE PLUS CHOICE PLUS [id number] PLUS WORKERS COMPENSATION GENERIC Advance Directives For more information, please contact: [phone] * Full Code (Latest Code Status on File) Date Activated Date Inactivated Comments 07/12/2023 1:26 PM 07/16/2023 1:38 PM * Full Code Date Activated Date Inactivated Comments 07/08/2023 9:31 AM 07/12/2023 1:14 PM * Full Code Date Activated Date Inactivated Comments 05/21/2017 2:47 PM 05/22/2017 5:23 PM Care Teams Inspector Publications Relationship Specialty Start Date End Date Marques Prui MD [address] [place] [address] PCP - General Infectious Diseases 03/06/19 Christina Hernandez MD [address] [place] [address] Consulting Physician Neurology 10/06/19 Annia Garza MD [address] [place] [address] Stem Cleaning Machine Feeder Obstetrics and Gynecology 09/27/19 Jay Jones, OD [address] [place] [address] Consulting Physician Optometry 06/06/22 Marlo Zamudio MD [address] [place], [place] [id number] Consulting Physician Orthopedic Surgery 02/03/24 Richy Zarate, OD [address] [place] [address] Consulting Physician Optometry 05/12/24
--- OUTSIDE RECORDS SUMMARY | 2024-11-21 15:46 | XMS_ITS | Encounter Summary ---
Author Organization [facility] Healthcare Address [address] [place] [address] Care Team Providers Care Terminal Makeup Operator Name Role Phone Fadi Wakefield MD Primary Care Provider [phone] Christina Hernandez MD Unavailable Annia Garza MD Unavailable [phone] Jay Jones OD Unavailable [phone] Marlo Zamudio MD Unavailable [phone] Richy Zarate OD Unavailable [phone] Encounter Details Date Type Department Care Team (Late st Contact Info) Description 10/16/2024 Results Follow-Up [facility] Medical Group Sports Medicine and Primary Care at [address] [place] [address] Arya Paniagua, DO [address] [facility] [address] [place] [id number] Crystal Analysis, Body Fluid, Cell count w/rflx diff, body fluid, Aerobic culture and gram stain Synovial fluid Knee, left, Cell Differential, Body Fluid Social History Tobacco Use Types Packs/Day Years Used Date Smoking Tobacco: Never Smokeless Tobacco: Never Alcohol Use Standard Drinks/Week Comments No 0 (1 standard drink = 0.6 oz pur e alcohol) very rare [facility] Utilities Answer Date Recorded In the past 12 months has [employer] electric, gas, oil, or water company threatened [...] often do you attend chur ch or pentecostal services? Never 07/13/2023 Do you belong to any clubs o r organizations such as adventist groups, unions, fraternal or athletic groups, or [...] staff should administer the PHQ-9) 0 10/22/2023 [facility] - Occupational Stress Questionnaire Answer Date Recorded [...] place to sleep or slept in a chcf (including now)? 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 Not on file Not on file documented as of this encounter Plan of Treatment Not on file documented as of this encounter Visit Diagnoses Not on filedocumented in this encounter Care Teams Terminal Makeup Operator Relationship Specialty Start Date End Date Fadi Wakefield MD [address] [place] [address] PCP - General Infectious Diseases 03/06/19 Christina Hernandez MD [address] [place] [address] Consulting Physician Neurology 10/06/19 Annia Garza MD [address] [place] [address] Farmworker Fruit Obstetrics and Gynecology 09/27/19 Jay Jones, OD [address] [place] [address] Consulting Physician Optometry 06/06/22 Marlo Zamudio MD [address] [place] [address] Consulting Physician Orthopedic Surgery 02/03/24 Richy Zarate OD [address] [place], [place] [id number] Consulting Physician Optometry 05/12/24 documented as of this encounter
--- OUTSIDE RECORDS SUMMARY | 2024-11-21 15:46 | XMS_ITS | Encounter Summary ---
Author Organization [facility] Healthcare Address [address] [place] [address] Care Team Providers Care Assistant Men'S Lacrosse Coach Name Role Phone Fadi Wakefield MD Primary Care Provider [phone] Christina Hernandez MD Unavailable Annia Garza MD Unavailable [phone] Jay Jones OD Unavailable [phone] Marlo Zamudio MD Unavailable [phone] Richy Zarate OD Unavailable [phone] Encounter Details Date Type Department Care Team (Late st Contact Info) Description 09/25/2024 Results Follow-Up [facility] Medical Group [facility] [address] [place] [phone] Fannie Rosa, REED PRESS FEEDER Protime-INR Social History Tobacco Use Types Packs/Day Years Used Date Smoking Tobacco: Never Smokeless Tobacco: Never Alcohol Use Standard Drinks/Week Comments No 0 (1 standard drink = 0.6 oz pur e alcohol) very rare [facility] Utilities Answer Date Recorded In the past [...] often do you attend chur ch or anabaptist services? Never 07/13/2023 Do you belong to any clubs o r organizations such as baptist groups, unions, fraternal or athletic groups, or [...] staff should administer the PHQ-9) 0 10/22/2023 [facility] - [...] place to sleep or slept in a fdc (including now)? 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 on file Not on file documented as of this encounter Plan of Treatment Not on file documented as of this encounter Visit Diagnoses Not on filedocumented in this encounter Care Teams Assistant Men'S Lacrosse Coach Relationship Specialty Start Date End Date Fadi Wakefield MD [address] [place] [address] PCP - General Infectious Diseases 03/06/19 Christina Hernandez MD [address] [place] [address] Consulting Physician Neurology 10/06/19 Annia Garza MD [address] [place] [address] Postal Service Clerk Obstetrics and Gynecology 09/27/19 Jay Jones OD [address] [place] [address] Consulting Physician Optometry 06/06/22 Marlo Zamudio MD [address] [place] [address] Consulting Physician Orthopedic Surgery 02/03/24 Richy Zarate OD [address] [place] [address] Consulting Physician Optometry 05/12/24 documented as of this encounter
--- OUTSIDE RECORDS SUMMARY | 2024-11-21 15:46 | XMS_ITS | Encounter Summary ---
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 Name Role Phone Fadi Wakefield MD Primary Care Provider [phone] Christina Hernandez MD Unavailable Annia Garza MD Unavailable [phone] Jay Jones OD Unavailable [phone] Marlo Zamudio MD Unavailable [phone] Richy Zarate OD Unavailable [phone] Encounter Details Date Type Department Care Team (Late st Contact Info) Description 07/12/2023 Telephone [facility] Physical Medicine and Rehabilitation [address] [place] [address] Zenobia Hitchcock, TRIMMING INSPECTOR Social History Tobacco Use Types Packs/Day Years Used Date Smoking Tobacco: Never Smokeless Tobacco: Never Alcohol Use Standard Drinks/Week Comments No 0 (1 standard drink = 0.6 oz pur e alcohol) very rare [facility] Utilities Answer Date Recorded In the past 12 months has th [employer] electric, gas, oil, or water company threatened [...] week 07/13/2023 How often do you attend [facility] or protestant services? Never 07/13/2023 Do you belong to any clubs o r organizations such as presybeterian groups, unions, fraternal or athletic groups, or school groups? No 07/13/2023 How often do you attend meet ings of the clubs or organizations you belong to? Never 07/13/2023 Are you , , di vorced, , never , or living with a partner? 07/13/2023 AUDIT-C Answer Date Recorded Q1: How often do you have a drink containing alc ohol? Monthly or less 07/13/2023 Q2: How many drinks containi ng alcohol do you have on a typical day when you are drinking? 1 or 2 07/13/2023 Q3: How often do you have si x or more drinks on one occasion? Never 07/13/2023 Overall Financial Resource Strain (CARDIA) Answe r Date Recorded How hard is it for you to pa y for the very basics like food, housing, medical care, and heating? Not hard at all 07/13/2023 PHQ-2 Answer Date Recorded Patient Health Questionnaire-2 Score 0 07/15/2023 [facility] - [...] place to sleep or slept in a snf (including now)? No 07/13/2023 PHQ-9 Answer Date Recorded Patient Health Questionnaire-9 Score 1 07/15/2023 Personal Safety Answer Date Recorded Have you ever been in or are you currently in a harmful physical or emotional relationship or is someone making you feel afraid or unsafe? Denies 07/12/2023 Education Answer Date Recorded What is the highest level of school you have completed or the highest degree you have received? 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 file Not on file Not on file documented as of this encounter Last Filed Vital Signs Vital Sign Reading Time Taken Comments Blood Pressure - - Pulse - - Temperature - - Respiratory Rate - - Oxygen Saturation - - Inhaled Oxygen Concentration - - Weight 117.9 kg (260 lb) 07/12/2023 9:24 AM CDT Height 162.6 cm (5' 4) 07/12/2023 9:24 AM CDT Body Mass Index 44.63 07/12/2023 9:24 AM CDT documented in this encounter Functional Status * AUDIT-C Score Answer Date of Assessment Author 1 07/13/2023 8:25 AM CDT Sheeba Paul MSW * Question Answer Date of Assessment Author Q1: How often do you have a drink containing alcohol? Monthly or less 07/13/2023 8:25 AM Zenaida Dyer MSW Q2: How many drinks containing alcohol do you have on a typical day when you are drinking? 1 or 2 07/13/2023 8:25 AM Zenaida Dyer MSW Q3: How often do you have six or more drinks on one occasion? Never 07/13/2023 8:25 AM Zenaida Dyer MSW * Over the past 2 weeks, how often have you been bothered by any of the following problems? Question Answer Date of Assessment Author Patient Health Questionnaire -2 Score 0 07/15/2023 9:21 AM Zenaida Dyer , WEIGHT RECORDER * How difficult have these problems made it for you to do your work, take care of things at home, or get along with other people? Answer Date of Assessment Author Somewhat difficult 07/15/2023 9:21 AM Zenaida Dyer, WEIGHT RECORDER * Over the past 2 weeks, how often have you been bothered by any of the following problems? Question Answer Date of Assessment Author Little interest or pleasure in doing things Not at all 07/15/2023 9:21 AM Zenaida Dyer , WEIGHT RECORDER Feeling down, depressed, or hopeless Not at all 07/15/2023 9:21 AM Zenaida Dyer , WEIGHT RECORDER Trouble falling or staying asleep, or sleeping too much Not at all 07/15/2023 9:21 AM Horacio Dyer, WEIGHT RECORDER Feeling tired or having little energy Several days 07/15/2023 9:21 AM Zenaida Dyer , WEIGHT RECORDER Poor appetite or overeating Not at all 07/15/2023 9: 21 AM Zenaida Dyer, WEIGHT RECORDER Feeling bad about yourself - or that you are a failure or have let yourself or your family down Not at all 07/15/2023 9:21 AM Zenaida Dyer , WEIGHT RECORDER Trouble concentrating on things, such as reading the newspaper or watching television Not at all 07/15/2023 9:21 AM Zenaida Dyer , WEIGHT RECORDER Moving or speaking so slowly that other people could have noticed? Or the opposite - being so fidgety or restless that you have been moving around a lot more than usual. Not at all 07/15/2023 9:21 AM Zenaida Dyer , WEIGHT RECORDER Thoughts that you would be better off or hurting yourself in some way Not at all 07/15/2023 9:21 AM Zenaida Dyer, LEXIS Patient Health Questionnaire-9 Score 1 07/15/2023 9:21 AM Zenaida Dyer, LEXIS documented as of this encounter Miscellaneous Notes * Pre-Admission Screening - Zenobia Hitchcock SLP - 07/12/2023 9:37 AM CDT [facility] Physical Medicine and Rehabilitation Preadmission Screening Reason for Consult: Fanta Howard is a 53 y.o. female with a medical diagnosis of Left CVA and Rehab Diagnosis: Left CVA whose probable impairment code for inpatient rehabilitation is: Impairment Code Group: Stroke Stroke: Right Body Involvement (Left Brain) The following information was gathered for consideration and maintenance in the medical record to substantiate medical necessity for IRF level of care. Patient is currently at [facility] . The patient is being referred and recommended by Dr. Nielson to be assessed both medically and functionally in regard to their premorbid functional capacity to determine whether they can benefit from a rehabilitation level of care offered by our facility. The following information is regarding the medical complexity and clinical risk factors that need to be considered for the appropriate management of the patient's care and recovery. RECOMMENDATIONS / PLAN: Goals for admission:to resolve all medical issues to optimal level and to improve patient's functional independence to an Independent level for overall self cares, mobility and transfers with least restrictive device Likelihood of reaching these goals:Excellent Medical Prognosis: Medical prognosis appears good due to ongoing medical issues and existing comorbidities Functional Prognosis: Functional prognosis appears excellent for patient to recover to an Independent level for overall self care, mobilty and transfers with least restrictive device Therapies required to achieve goals:The patient will benefit from integrated coordination of care from the following interdisciplinary services: Medical Supervision, 24 hours Rehabilitation Nursing, Physical Therapy, Occupational Therapy, Case Management, Speech Therapy, Social Work Expected level of improvement is: excellent Expected level of improvement at discharge is: independent Strengths for achieving goals: Strengths: Able to tolerate intensive inpatient rehab program, Good family/social support, Good premorbid functional status, Good premorbid medical status, Living in the community premorbidly, Motivated Barriers to achieving goals: Barriers: Comorbidities Expected length of stay: Estimated Length of Stay: 10 days When medically stable, anticipated disposition: Anticipated destination post discharge from inpatient rehab: community discharge without assist Information regarding the rehab process including risks/benefits and financial issues were discussed with the patient and/or family and they have agreed to accept rehabilitation risks and benefits. Payor Source: Primary: [facility] Choice Commercial Secondary:Authorization number [id number] Case discussed with Dr. Yarely Gross on 07/09/23 @ 1000. Appropriateness for admission to the Inpatient Rehab Facility: yes The Pre-admission screen is an assessment of the patient's medical and functional status and has been reviewed by a rehab physician. It has been determined by the rehab physician that this patient will benefit from a comprehensive inpatient rehab admission to meet the identified goals and manage ongoing medical issues. The physician will provide documentation that supports an inpatient rehab admission including real and potential complications for which the patient is at risk with a plan to manage and avoid those risks HISTORY: Past Medical History: Past Medical History: Diagnosis Date Chest pain, atypical 07/02/2017 Details lacking. Chicken pox Does not remember the age, but definitely had it. COVID 12/26/2020 Seen in [facility] ER for sore throat, congestion, a slight cough, and an intermittent MCCARTHY, tested positive. COVID-19 12/26/2020 Dizziness 03/29/2017 Intermittent symptoms dating to about 2017, likely BPPV, saw ENT, Dr. Graham. Encounter for health-related screening 07/02/2017 Details lacking. Hyperlipemia Hyperlipidemia 07/02/2017 On meds. Hyperlipidemia associated with type 2 diabetes mellitus (HCC) 03/08/2017 Hypersomnia with sleep apnea 07/15/[address] Hernandez. Hypertension Internal derangement of left knee 10/17/2019 Added automatically from request for surgery [id number], Left knee arthroscopy on 11/14/2019, partial medial meniscectomy/medial femoral chondroplasty, Dr. Celeste, [facility]. Left arm pain 05/22/2017 Hospitalized, cardiac eval negative, see [facility] records. Morbid obesity ([facility]) 09/26/1990 Started gaining with her pregnancies (x3, 91-96) and continued to gain afterwards. Morbid obesity with BMI of 40.0-44.9, adult ([facility]) 12/22/2019 Additional weight gain, BMP >45. Muscle cramping 01/24/2021 Mostly nocturnal. Other abnormal glucose 07/03/2017 Diabetic. Sleep apnea Type 2 diabetes mellitus without complication ([facility]/HCC) (HCC) 03/08/2017 Past Surgical History: Past Surgical History: Procedure Laterality Date SECTION , , '96 SECTION, CLASSIC CHOLECYSTECTOMY HM DIABETES EYE EXAM Bilateral 10/20/2018 No diabetic retinopathy, Richy Cuff, OD. HM DIABETES EYE EXAM Bilateral 06/06/2022 No diabetic retinopathy, other findings present, Jay Jones, OD. HM MAMMOGRAPHY Bilateral 07/26/2012 Negative, [facility]. HM MAMMOGRAPHY Bilateral 04/21/2018 Negative, [facility]. HM MAMMOGRAPHY Bilateral 04/07/2019 Negative, [facility]. HM MAMMOGRAPHY Bilateral 04/26/2020 Negative, [facility]. HM MAMMOGRAPHY Bilateral 08/08/2021 Negative, [facility]. KNEE ARTHROSCOPY Left 11/14/2019 Left knee arthroscopic partial medial meniscectomy/medial femoral chondroplasty, Dr. Celeste, [facility]. TUBAL LIGATION 1995 with last Social History: Social History Tobacco Use Smoking status: Never Smokeless tobacco: Never Substance and Sexual Activity Drug use: No Sexual activity: Not Currently Partners: Male control/protection: Tubal Ligation Alcohol Use: Not on file Cultural Requests During Hospitalization: none conveyed Acute Conditions/Co-morbidities requiring Acute Rehab: Neurological disorder/exacerbation, Cerebrovascular Accident (CVA), Uncontrolled HTN, Uncontrolled DM, Other (comment) (right arm numbness/heaviness, slurred speech, right facial droop, left cheung radiata CVA, HTN, vertigo, morbid obesity, DM2, dyslipidemia) HPI: 07/08/23: History and Physical Hospitalists services SUBJECTIVE HPI: This is a very pleasant 53-year-old female, past medical history of vertigo, dyslipidemia, hypertension, morbid obesity diabetes type 2 presented to hospital emergency room with complains of right arm numbness and heaviness going on for 25 hours. Today patient is complaining of heaviness right upper extremity right lower extremity, weakness right upper extremity, facial droop and speech impairment but patient is alert oriented x4. Patient says that she discontinued her statin medications and was still going to have another doctor's appointment to restarted. A/P 1. ACUTE ISCHEMIC STROKE SUSPECTED. Patient presented with right arm numbness and heaviness now sheis having slurring of the speech and right-sided weakness. Patient received full dose of aspirin, starting Lipitor 40 mg now, Ct head( personally reviewed CT Films)showing no acute finding. 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 PT/OT, social service consult for possible acute rehab.Personally reviewed ECG strip SR 62. 2. Hypertension, at presentation the patient had uncontrolled blood pressure, this was treated but this was secondary to acute stroke most likely. Current blood pressure is satisfactory. Continue lisinoil 20 mg daily. 3. Morbid obesity with BMI of 44.65. Patient will benefit from weight loss. 4. Diabetes type 2, being treated with diet currently and her hemoglobin A1c recently was 6.3. Willmake sure that she is on consistent carb diet These fluid and electrolyte abnormalities are being treated, evaluated or monitored: No fluid or electrolyte disorders DVT prophylaxis start Lovenox Code status full code Anticipated length of stay to be greater than 2 midnight MDM High complexity Principal Problem: Right sided weakness Active Problems: Hypertension associated with type 2 diabetes mellitus (HCC) Type 2 diabetes mellitus without complication (CMS/HCC) (HCC) Obstructive sleep apnea syndrome Morbid obesity ([facility]) Hyperlipidemia associated with type 2 diabetes mellitus ([facility]) Vertigo Past Medical History: ?? Chest pain, atypical 07/02/2017 Details lacking. ?? Chicken pox Does not remember the age, but definitely had it. ?? COVID 12/26/2020 Seen in [facility] ER for sore throat, congestion, a slight cough, and an intermittent MCCARTHY, tested positive. ?? COVID-19 12/26/2020 ?? Dizziness 03/29/2017 Intermittent symptoms dating to about 2017, likely BPPV, saw ENT, Dr. Graham. ?? Encounter for health-related screening 07/02/2017 Details lacking. ?? Hyperlipemia ?? Hyperlipidemia 07/02/2017 On meds. ?? Hyperlipidemia associated with type 2 diabetes mellitus (HCC) 03/08/2017 ?? Hypersomnia with sleep apnea 07/15/[address] Hernandez. ?? Hypertension ?? Internal derangement of left knee 10/17/2019 Added automatically from request for surgery [id number], Left knee arthroscopy on 11/14/2019, partial medial meniscectomy/medial femoral chondroplasty, Dr. Celeste, [facility]. ?? Left arm pain 05/22/2017 Hospitalized, cardiac eval negative, see [facility] records. ?? Morbid obesity (HCC) 09/26/1990 Started gaining with her pregnancies (x3, 91-96) and continued to gain afterwards. ?? Morbid obesity with BMI of 40.0-44.9, adult ([facility]) 12/22/2019 Additional weight gain, BMP >45. ?? Muscle cramping 01/24/2021 Mostly nocturnal. ?? Other abnormal glucose 07/03/2017 Diabetic. ?? Sleep apnea ?? Type 2 diabetes mellitus without complication ([facility]) ([facility]) 03/08/2017 --MRI Brain WO Contrast Result Date: 07/08/2023 Narrative: EXAM DESCRIPTION: MRI BRAIN WO CONTRAST . 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 COMPARISON: CT imaging dated the same day. FINDINGS: Patient motion artifact limits the evaluation. No acute intracran ial hemorrhage or abnormal extra-axial fluid collection. Focus of restricted diffusion in the left cheung radiata adjacent to the left lateral ventricle suggesting acute cerebrovascular infarction. No suspicious FLAIR signal abnormalities. No acute hydrocephalus. Basilar cisterns patent. Normal flow voids in the larger intracranial vessels. Paranasal sinuses and mastoid air cells clear. Calvarialmarrow signal within normal limits. IMPRESSION: Acute cerebrovascular infarction in the left coronaradiata adjacent to the left lateral ventricle. This finding was immediately called to and discussed with MANUEL Tompkins at the time of image interpretation. --CT Stroke Head WO Contrast Result Date: 07/08/2023 Narrative: EXAM DESCRIPTION: CT STROKE HEAD WO CONTRAST REASON FOR STUDY: Stroke Patient states herright arm is numb and heavy since yesterday morning at work. Patient states she felt normal when she went to work at 0300 but was having the weakness when she left work at 0900. Patient states she isalso having difficulty walking. Patient has slurred speech. TECHNIQUE: Axial images acquired through the brain without intravenous contrast. Images stored on PACS. Automated exposure control was usedas a dose optimization technique for this examination. COMPARISON: 01/02/2018 FINDINGS: BRAIN: No hemorrhage, edema or mass effect. No recent infarct. Normal white matter. EXTRA-AXIAL SPACES: No fluid collections. No masses. CALVARIUM: No fracture. SINUSES/MASTOIDS: No fluid or mucosal thickening.ORBITS: No significant abnormality. OTHER: No other significant abnormality. IMPRESSION: No acute intracranial findings. 07/09/23: Neurology Consult SUBJECTIVE CC: The patient is a 53 y.o. female with chief complaint of right-sided weakness HPI: This is a 52 year old female with past medical history of HLD, HTN, STACIE, hypersomnia, morbid obesity, type II diabetes who presented to ER with chief complaint of right-sided weakness, right facial droop, and slurred speech. MRI brain without showed acute CVA in left cheung radiata. Prior to admission, patient was not on antiplatelet. She was not compliant with statin. On exam, her speech is fluent. She has slight right facial droop, but patient feels back to her baseline and reports a slight right facial asymmetry at baseline due to a dog bite when she was younger. Right upper extremity has mild right-sided weakness. She is able to walk independently. Lab/Radiology/Diagnostic Review: 1. 07/08/2023- CMP unremarkable except creatinine 0.54. 2. 07/08/2023-CBC unremarkable 3. 07/09/2023- LDL 106, hemoglobin A1C 6.0% 4. 07/08/2023- EKG shows sinus rhythm 62 BPM 5. 07/08/2023- MRI brain without shows acute CVA in left cheung radiata adjacent to left lateral ventricle 6. 07/08/2023- CT head without shows no acute findings ASSESSMENT/ PLAN The patient is a 53 y.o. female who was admitted to the hospital for right-sided weakness, right facial droop, and slurred speech. MRI showed acute CVA in left cheung radiata. 1. Start aspirin 81mg daily 2. Start atorvastatin 40mg daily 3. Echocardiogram 4. Carotid ultrasound 5. PT/OT/TRIMMING INSPECTOR 6. Optimize underlying stroke risk factors Ms. Howard is a 53-year-old with significant history of hypertension, hyperlipidemia, sleep apnea, hypersomnia morbidly obese type 2 diabetes, who presented with chief complaints of right-sided weakness. Patient states she went to work and morphine 3:00 a.m.. She started noticing some vertigo and was sent home from work at 9:00 a.m.. She got home around 11:00 a.m.. She felt right arm numbness and heaviness compared to left side. She presents to the ED at 4:20 a.m. the next day. Found to be having facial droop right-sided weakness slurring of speech. Patient presented with the above symptoms subsequently admitted. Patient was out of the tPA window. Physical examination: Alert and oriented time place person. Right upper extremity was 4+/5. No drift noted in the left side. Reflexes were symmetrical plantars were downgoing. Review of data: CMP was unremarkable except for creatinine 0.44 CBC unremarkable LDL 106 hemoglobin A1c 6.0 MRI brain films reviewed personally. Acute ischemic stroke with a left cheung radiata adjacent leftlateral ventricle noted Emergency notes from 07/08/[address] Henry m.d. was reviewed summer the report reveals significant history of right-sided lip scar, vertigo, hyperlipidemia, diabetes, presenting with right arm heaviness. Going to work at 3:00 a.m.. Started having vertigo and was sent home at 9:00 a.m.. Got home around 11. She felt like her was heavy compared to left. No numbness slurring of speech. Patient came into the above symptoms pressure was 193/117. Patient was out of the tPA window. Admitted further assess management Assessment/plan: 1. Stroke: 53-year-old with significant comorbidities including hypertension, hyperlipidemia, sleepapnea, type 2 diabetes presents with sudden onset neurological characterized by right arm heavinesswith presence of weakness. MRI confirms presence of ischemic stroke. Optimizing risk factors for stroke was emphasized. Recommend antiplatelet therapy. Recommend continuing stroke workup including echocardiogram carotid Doppler study. Recommend therapy assessment 2. Sleep apnea: Patient has a longstanding diagnosis of the above. Advised to optimize the above 3.Hyperlipidemia: Continue atorvastatin. 07/11/23: General Medicine Daily Progress SUBJECTIVE Chief complaint of acute stroke. Interval History: Improving every day A/P: 1. ACUTE ISCHEMIC STROKE SUSPECTED. Patient presented with right arm numbness and heaviness now sheis having slurring of the speech and right-sided weakness. Patient received full dose of aspirin, starting Lipitor 40 mg now, Ct head( personally reviewed CT Films)showing no acute finding. 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 PT/OT, social service consult for possible acute rehab.Personally reviewed ECG strip SR 62. 2. Hypertension, at presentation the patient had uncontrolled blood pressure, this was treated but this was secondary to acute stroke most likely. Current blood pressure is satisfactory. Continue lisinoil 20 mg daily. 3. Morbid obesity with BMI of 44.65. Patient will benefit from weight loss. 4. Diabetes type 2, being treated with diet currently and her hemoglobin A1c recently was 6.3. Willmake sure that she is on consistent carb diet 07/11/23-she is stable, continues to improve clinically slowly but not to the functional level she had before this stroke. Her red right arm is weak and has weak unit manager rn as well but this is improved since she came to hospital. Blood pressure is much better controlled, continuing full-dose aspirin, atorvastatin 40 mg which is new to her medications, still holding lisinopril because her blood pressure is systolic of 120 or 130. Will discontinue aspirin suppository because she is able to tolerate p.o.. Currently on low-fat low-cholesterol low- sodium consistent carbohydrate diet. Diabetes, her diabetes is well controlled, blood sugar is around 100. Currently on no diabetic medications and no need at this time. At home she is on semaglutide 7 mg. I suppose we can continue upondischarge, but if she stays on strict diabetic diet she may not need any medications at home. Today the patient was questioning about semaglutide being a risk factor to develop stroke. There was a study done showing 6.5% of patients being on semaglutide to develop cardiovascular event like heart attack and stroke and 8% of the population who were on placebo develop cardiovascular event. I told her that less likely this is the cause of her stroke. In any case she was taking the same aggravated for weight loss reasons and I will recommend to avoid it if possible at all. Recommend weight loss and lifestyle modification after discharge for greater benefits. Principal Problem: Right sided weakness Active Problems: Hypertension associated with type 2 diabetes mellitus (HCC) Type 2 diabetes mellitus without complication (CMS/HCC) ([facility]) Obstructive sleep apnea syndrome Morbid obesity ([facility]) Hyperlipidemia associated with type 2 diabetes mellitus ([facility]) Vertigo Acute ischemic stroke ([facility]) Acute CVA (cerebrovascular accident) ([facility]) Resolved Problems: No resolved hospital problems. 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 Date of Onset: Date of Onset: 07/08/23 Date Admitted to Acute: Date admitted to acute: 07/08/23 Precautions/Restrictions: Falls [place] Suicide Severity Rating Scale: Allergies: No Known Allergies Code Status: Full Code Vitals: There were no vitals filed for this visit. Current Systems Summary: Height: 162.6 cm (5' 4) Weight: 117.9 kg (260 lb) Diet: low-fat low-cholesterol low-sodium consistent carbohydrate diet Bladder: Continent Bowel: Continent Date of last BM: (will assess upon admission - not documented) Integumentary: mayco score 21 Cardiopulmonary: Room air Dialysis: N/A Pain: IVs: Current meds: Current Facility-Administered Medications on File Prior to Visit Medication Dose Route Frequency Provider Last Rate Last Admin aspirin tablet 325 mg 325 mg oral Daily Merari Thomson MD 325 mg at 07/12/23 0740 Or aspirin suppository 300 mg 300 mg rectal Daily Merari Thomson MD atorvastatin (LIPITOR) tablet 40 mg 40 mg oral Nightly Mirtha Rodriguez MD 40 mg at 07/11/23 2050 enoxaparin (LOVENOX) syringe 40 mg 40 mg subcutaneous Q12H MEGHNA Merari Thomson MD 40 mg at 07/12/23 0740 [Held by Provider] lisinopriL (PRINIVIL,ZESTRIL) tablet 20 mg 20 mg oral Daily Mirtha Rodriguez MD20 mg at 07/08/23 1319 prochlorperazine (COMPAZINE) tablet 5 mg 5 mg oral Q6H PRN Merari Thomson MD Or prochlorperazine (COMPAZINE) injection 5 mg 5 mg intravenous Q6H PRN Merari Thomson MD traMADoL (ULTRAM) tablet 50 mg 50 mg oral Q8H PRN Mirtha Rodriguez MD Current Outpatient Medications on File Prior to Visit Medication Sig Dispense Refill albuterol HFA (PROVENTIL HFA,VENTOLIN HFA,PROAIR HFA) 90 mcg/actuation inhaler Inhale 2 puffs every6 (six) hours as needed for wheezing for up to 7 days 1 each 0 blood-glucose meter mis Use monitor to test glucose 1-2x daily E 11.9 1 each 0 cholecalciferol (VITAMIN D-3) 25 mcg (1,000 unit) tablet Take 1 tablet (1,000 Units total) by mouthdaily cyanocobalamin (Vitamin B-12) 1,000 mcg tablet Take 1 tablet (1,000 mcg total) by mouth daily gabapentin (NEURONTIN) 100 mg capsule TAKE 1 CAPSULE BY MOUTH EVERY DAY IN THE EVENING 90 capsule 3 lancets misc Use to test glucose 1-2x daily 100 each 11 lisinopriL (PRINIVIL,ZESTRIL) 20 mg tablet TAKE 1 TABLET BY MOUTH EVERY DAY 90 tablet 3 meclizine (ANTIVERT) 25 mg tablet Take 1 tablet (25 mg total) by mouth 3 (three) times a day as needed for dizziness 90 tablet 1 semaglutide (Rybelsus) 7 mg tablet Take 1 tablet (7 mg total) by mouth daily 30 tablet 5 traMADoL (ULTRAM) 50 mg tablet Take 1 tablet (50 mg total) by mouth every 6 (six) hours as needed for pain 60 tablet 1 Substance abuse history: Fanta Howard reports that she has never smoked. She has never used smokeless tobacco. She reports that she does not use drugs. No alcohol history on file. Diagnostic Tests: Recent Results (from the past 72 hour(s)) COVID-19 Coronavirus RNA Nasopharyngeal Collection Time: 07/12/23 8:53 AM Specimen: Nasopharyngeal Result Value Ref Range COVID-19 RNA Negative Negative Prior Functional Status: Mobility status/Ambulation aid/assistive devices: Transfers: Independent Walking: Independent Walking assistive devices used: None Stair negotiation: Independent Falls: Has the patient had 2 or more falls in the past year or any fall with injury in the past year?: No Activities of daily living (ADL) status/ Assistive devices used for ADLs: Dressing: Independent Bathing: Independent Toileting: Independent Bladder: Continent Bowel: Continent Domestic Chores: Independent Driving: Yes Functional limitations: Hearing: Normal Sensory Vision: Normal Cognition: Intact Communication: Normal Nutrition: Normal 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 Vocational Status: Employed full-time Home Setting: One story home Prehospital Lives With: Spouse; Family Exterior Home Access: Steps (3 USMAN) Interior Home Access: No steps Current functional status: ADL: OT Functional Mobility: 07/09: CGA/SBA transfers (07/12/2023 9:31 AM) OT Self Care: grooming, toileting CGA (07/12/2023 9:31 AM) OT Cognition: Ox4 (07/12/2023 9:31 AM) Mobility/Transfers: PT Functional Mobility: 07/10: ambulation 80ft CGA, transfers SBA (07/12/2023 9:31 AM) Cognition/Communication/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: 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 Cognition: n/a (07/12/2023 9:31 AM) TRIMMING INSPECTOR Communication: wfl (07/12/2023 9:31 AM) TRIMMING INSPECTOR Swallowing: wfl (07/12/2023 9:31 AM) Conditions requiring acute rehab and risk for complications: Diabetes - risk for hypoglycemic episodes Uncontrolled Hypertension - risk for stroke, stroke extension, [place] Decreased mobility - Risk for Fall, skin breakdown, further injury, decompensation, muscle flaccidity Balance Issues- Risk for Fall, further injury Treatments needed to address conditions requiring acute rehab: Daily Face to Face oversight by a provider, Intense PT/OT/SP, Access to Senior Process Engineer physicians Alternative Level of Care considered and not appropriate due to: Daily MD oversight, Neurochecks, Medication adjustment/oversight, Consult physician oversight Patient/Caregiver Goals: Patient and Family Goals: to return home at highest level functional independence Cosigned by Yarely Johnston MD at 07/12/2023 10:08 AM CDT Associated attestation - Yarely Johnston MD - 07/12/2023 10:08 AM CDT Rehab Referral Decision: Approved I have reviewed this patient Pre-admission Screening Information.The patient is medically stable toparticipate in an inpatient rehabilitation program. In my rehabilitation experience and professional judgement, this patient meets medical necessity criteria and requires an inpatient rehabilitation stay to manage current nursing and medical issues. The patient requires supervision by a rehabilitation physician at least three times a week. The patient requires the Interdisciplinary team approach of an inpatient rehabilitation program. This patient can reasonably expect to participate and benefit from the intensive Inpatient rehabilitation program offered at [facility] . 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 06/01/2024 06/02/2024 08/30/2024 7:26 PM C DT documented as of this encounter Care Teams Cable Ferryboat Operator Relationship Specialty Start Date End Date Fadi Wakefield MD [address] [place] [address] PCP - General Infectious Diseases 03/06/19 Christina Hernandez MD [address] [place] [address] Consulting Physician Neurology 10/06/19 Annia Garza MD [address] [place] [address] Band Cutting Machine Operator Obstetrics and Gynecology 09/27/19 Jay Jones, OD [address] [place] [address] Consulting Physician Optometry 06/06/22 Marlo Zamudio MD [address] [place] [address] Consulting Physician Orthopedic Surgery 02/03/24 Richy Zarate, OD [address] [place] [address] Consulting Physician Optometry 05/12/24 documented as of this encounter
[2024-11-21 16:02] VITALS: BP 113/68; PULSE 82; RESP 20; TEMP 36.5; O2SAT 98
--- NOTE | 2024-11-21 16:43 | ED_ITS ---
HPI - General Adult General Chief complaint: Upper Respiratory Infection Stated complaint: Sore Throat Source: patient and family Mode of arrival: ambulatory Limitations: no limitations History of Present Illness HPI narrative: Pt presents for evaluation of sore throat. Symptom onset yesterday. She also has chills and nausea. She denies any fever, vomiting, diarrhea, cough, shortness of breath. No recent sick contacts to her knowledge. She is not taking any medication to assist with her symptoms. Related Data Home Medications ?Medication ?Instructions ?Recorded ?Confirmed ?Last Taken ?Type atorvastatin 40 mg tablet mg 11/21/24 Unknown History lisinopril 20 mg tablet mg 11/21/24 Unknown History tirzepatide 5 mg/0.5 mL mg subcut 11/21/24 Unknown History subcutaneous pen injector (Mounjaro) warfarin 1 mg tablet mg 11/21/24 Unknown History Allergies Allergy/AdvReac Type Severity Reaction Status Date / Time No Known Allergies Allergy Unknown Unverified 10/09/16 16:32 Review of Systems Review of Systems: CONSTITUTIONAL: Reports chills. Denies fever or sweats. EYES: Denies visual changes, redness, or discharge. ENT: Reports sore throat. Denies rhinorrhea, congestion, or otalgia. CARDIOVASCULAR: Denies chest pain, palpitations, or edema. RESPIRATORY: Denies cough or dyspnea. GASTROINTESTINAL: Reports nausea. Denies abdominal pain, vomiting, or diarrhea. GENITOURINARY: Denies dysuria or hematuria. SKIN: Denies rash or itching. MUSCULOSKELETAL: Denies back pain, joint pain, or myalgia. NEUROLOGIC: Denies headache, numbness, dizziness, or weakness. PSYCHIATRIC: Denies anxiety or depression. [facility] Past Medical History Medical History HLD (hyperlipidemia) Prediabetes HTN (hypertension) Surgical History Surgical History No pertinent past surgical history Family History Family History Mother Family history non-contributory Social History Social History Smoking status: Never smoker Substance use: never Gender identity (if verbalized by the patient): Female Spiritual care concerns: No Exam Narrative: GENERAL: Well-appearing, well-nourished, and in no acute distress. HEAD: Normocephalic, atraumatic. EYES: PERRLA and EOMI. ENT: Nares clear, no rhinorrhea or epistaxis. Mucous membranes moist. Bilateral tonsillar swelling and erythema with white exudate. Uvula is midline. Bilateral TMs pearly [place] nonbulging NECK: Supple. No adenopathy or masses. No carotid bruits or JVD CHEST: Clear to auscultation. No respiratory distress. No wheezes rales or rhonchi HEART: Regular rate and rhythm. No murmur heard. Normal peripheral pulses. ABDOMEN: Soft, nontender, nondistended, normal active bowel sounds. EXTREMITIES: Normal range of motion. No edema. SKIN: Warm, dry, no rash. NEURO: No focal deficits. Alert and oriented x3. PSYCH: Normal mood and affect. Course Course Emergency Course: This is a 54-year-old female who presented for evaluation of sore throat. Rapid strep negative. Will send throat culture. She opted to proceed with antibiotic therapy in the event that strep was a false negative. Will discharge with Augmentin. Follow-up with primary provider. Go to the ER worsening symptoms. Patient in agreement with plan of care. Level of Care: Express Care Visit Vital Signs Vital signs: Vital Signs Temperature 36.5 C 11/21/24 16:02 Pulse Rate 82 11/21/24 16:02 Respiratory Rate 20 11/21/24 16:02 Blood Pressure 113/68 11/21/24 16:02 Pulse Oximetry 98 11/21/24 16:02 Oxygen Delivery Room Air 11/21/24 16:02 Temperature 36.5 C 11/21/24 16:02 Pulse Rate 82 11/21/24 16:02 Respiratory Rate 20 11/21/24 16:02 Blood Pressure 113/68 11/21/24 16:02 Pulse Oximetry 98 11/21/24 16:02 Oxygen Delivery Room Air 11/21/24 16:02 Medical Decision Making Vital Signs Vital Signs: Vital Signs Temperature 36.5 C 11/21/24 16:02 Pulse Rate 82 11/21/24 16:02 Respiratory Rate 20 11/21/24 16:02 Blood Pressure 113/68 11/21/24 16:02 Pulse Oximetry 98 11/21/24 16:02 Oxygen Delivery Room Air 11/21/24 16:02 Temperature 36.5 C 11/21/24 16:02 Pulse Rate 82 11/21/24 16:02 Respiratory Rate 20 11/21/24 16:02 Blood Pressure 113/68 11/21/24 16:02 Pulse Oximetry 98 11/21/24 16:02 Oxygen Delivery Room Air 11/21/24 16:02 Lab Data Labs: Lab Results 11/21/24 Range/Units 16:45 POC Grp A Strep Screen Negative (Negative) Discharge Plan Discharge Clinical Impression: Pharyngitis Patient Disposition: Home Condition: Stable Instructions: Antibiotic Form, Pharyngitis (ED) Patient Language: Pakistani Prescriptions: New amoxicillin-pot clavulanate 875-125 mg tablet 1 tablet PO Q12H Qty: 20 0RF No Action atorvastatin 40 mg tablet lisinopril 20 mg tablet warfarin 1 mg tablet Mounjaro 5 mg/0.5 mL pen injector SUBCUT ibuprofen 600 mg tablet 600 mg PO TID PRN (Reason: pain) Qty: 14 0RF Follow-up/Referrals: Stamaria c,Fadi Ricks MD [Primary Care Provider, Unknown] Time of Disposition: 16:56
[2024-11-21 16:47] LABS: EDSTREPNEGPOS1 Negative (Negative)
== END 2024-11-21 17:03 | disposition home or self-care (01) ==
PROVIDERS: Emergency Provider Nurse Practitioner; PCP Internal Medicine Infectious Disease
DX: J02.9 Acute pharyngitis, unspecified (principal); E78.5 Hyperlipidemia, unspecified; I10 Essential (primary) hypertension; R73.03 Prediabetes
CPT/HCPCS: 87880; 99213; G0463